=== PATIENT | female | born 1975 | race Caucasian/White ===

== ENCOUNTER 2017-07-18 13:51 | Emergency (ER) | payer OTHER ==
--- OUTSIDE RECORDS SUMMARY | 2017-07-18 14:36 | XMS REPORT ---
:1975 External Reference #:[id number] Author Organization [facility] Address [address] [place] [address] Phone [phone] Care Team Providers Name Role Phone Alexis Huntley M.D. Primary Care Physician Unavailable Payers Type Date Identification Numbers Payment Provider Subscriber Commercial Policy Number: [id number] [employer] [place] Carolynn Edge PayID: [id number] [address] [place] [id number] Problems Date Description Provider Status Onset: Hypothyroidism Active Onset: Anxiety Active Onset: Insomnia Active Onset: Borderline personality disorder Active Onset: 07/15/2016 Other secondary cataract, right eye Justin Richmond M.D. Active Onset: 07/07/2016 Bilateral narrow angle of anterior Justin Richmond M.D. Active chamber of eyes Onset: 01/07/2016 Presence of intraocular lens Justin Richmond M.D. Active Onset: 01/07/2016 Other secondary cataract, bilateral Justin Richmond M.D. Active Onset: 01/07/2016 Tear film insufficiency Justin Richmond M.D. Active Onset: 10/27/2014 Primary angle-closure glaucoma Justin Richmond M.D. Active Onset: 10/27/2014 Pseudophakia Justin Richmond M.D. Active Family History Date Family Member(s) Problem(s) Comments General Cataract GRANDMOTHER Father No Current Problems Mother No Current Problems Social History Type Date Description Comments Marital Status Legal Status: Occupation [employer] Work Status Disabled ETOH Use Denies alcohol use Smoking Light tobacco smoker (10 or fewer cigarettes/day) 4-5 DAILY Daily Caffeine Consumes on average 1 cup of regular coffee per sometimes less day Allergies, Adverse Reactions, Alerts Date Description Reaction Status Severity Comments 07/03/2014 Sulfa Antibiotics active 07/03/2014 Onion active Medications Medication Date Status Form Strength Qnty SIG Indications Ordering Provider Systane Ultra 07/02/ Active Solution 0.4-0.3% 1 drop Justin J. 2014 both eyes Arleo, four M.D. times a day Levothyroxine / Active Tablets 137mcg Unknown Sodium 0000 Clonidine HCL / Active Tablets 0.2mg Unknown 0000 Fexofenadine / Active Tablets 180mg Unknown HCL 0000 Primidone / Active Tablets 50mg Unknown 0000 Propranolol HCL / Active Tablets 10mg [place], 0000 Heidi M.D. Fluconazole / Active Tablets 150mg Unknown 0000 Nortriptyline / Active Capsules 10mg Unknown HCL 0000 Vitamin D3 / Active Tablets Unknown Complete 0000 Sertraline HCL / Active Tablets 50mg Unknown 0000 Saphris / Active Tablets Sub 5mg Unknown 0000 Prednisolone 07/11/ Hx Suspension 1% 15ml 1 drops Justin J. Acetate 2014 - left eye Arleo, 08/15/ three M.D. 2014 times a day. taper as directed 1 drop 2 x a day right eye taper as directed Ciprofloxacin 07/11/ Hx Solution 0.3% 5ml instill Justin J. HCL 2014 - one drop Arleo, 08/15/ in the M.D. 2014 left eye three times a day, start the day before surgery Ketorolac 07/11/ Hx Solution 0.5% 10ml instill Justin J. Tromethamine 2014 - one drop Arleo, 08/15/ both eyes M.D. 2014 three times a day, start the day before surgery Klonopin 00/00/ Hx Tablets 1mg Unknown 2015 Lamictal /00/ Hx Tablets 200mg Unknown 2015 Prazosin HCL /00/ Hx Capsules 2mg Unknown 2016 Ultracet 00/00/ Hx Tablets 37.5-325mg Unknown - 2014 Seroquel /00/ Hx Tablets 100mg Unknown 2017 Sertraline HCL 00/00/ Hx Tablets 50mg Unknown - 2016 Nicotine 00/00/ Hx Patches 24HR 14mg/24HR Apply One Unknown 0000 - Patch To 01/05/ The Skin 2015 Every Day Changing Daily For Up To 28 Days Nicotine 00/00/ Hx Patches 24HR 21mg/24HR Apply One Unknown 0000 - Patch To 01/05/ The Skin 2015 Every Day Changing Daily Then Go To 14 MG Nicotine 00/00/ Hx Patches 24HR 7mg/24HR Apply One Unknown 0000 - Patch To 07/06/ The Skin 2016 Every Day Changing Daily Start After 14 M Amoxicillin/Cla 00/00/ Hx Tablets 875-125mg Unknown vulanate 0000 - Potassium 2015 Oxycodone-Aceta 00/00/ Hx Tablets 5-325mg Unknown minophen - 2015 Guaifenesin-Cod /00/ Hx Solution 100-10mg/5 Unknown eine 0000 - ML 2015 Doxycycline /00/ Hx Capsules 100mg Unknown Hyclate 2015 Fluticasone 00/00/ Hx Suspension 50mcg/Act Unknown Propionate 2015 Cetirizine HCL 00/00/ Hx Tablets 10mg Unknown 2015 Sertraline HCL 00/00/ Hx Tablets 25mg Unknown 2015 Tizanidine HCL 00/00/ Hx Tablets 2mg Storm, - Shawnti 2015 Quetiapine 00/00/ Hx Tablets 50mg Unknown Fumarate 2015 Amitriptyline 00/00/ Hx Tablets 25mg Unknown HCL 2015 Ziprasidone HCL 00/00/ Hx Capsules 20mg Unknown 2015 Ziprasidone HCL 00/00/ Hx Capsules 40mg Unknown 2015 Lamotrigine 00/00/ Hx Tablets 200mg Unknown 2015 Metronidazole 00/00/ Hx Tablets 500mg Unknown 2015 Multiple 00/00/ Hx Tablets Unknown Vitamins - 2017 Vital Signs Date Vital Result Comment 07/22/2016 BP Systolic 114 mmHg BP Diastolic 82 mmHg Heart Rate 70 /min Respiratory Rate 16 /min 07/15/2016 BP Systolic 134 mmHg BP Diastolic 84 mmHg Heart Rate 76 /min Respiratory Rate 16 /min Results Description No Information Procedures Date CPT Code Description Status 07/22/2016 02533 Remove Secondary Cataract, Laser (Yag) Completed 07/15/2016 45732 Remove Secondary Cataract, Laser (Yag) Completed 07/07/2016 25982 Est Patient Comprehensive Exam Completed 01/07/2016 50737 Est Patient Comprehensive Exam Completed 10/27/2014 54981 Est Patient Intermediate Exam Completed 07/26/2014 67864 Extracapsular Cataract Extraction W/Intraocular Lens Completed 07/19/2014 99172 Extracapsular Cataract Extraction W/Intraocular Lens Completed 07/11/2014 52580 Gonioscopy Completed 07/11/2014 60147 Ophthalmic Biometry Completed 07/11/2014 49704 Ophthalmic Biometry Completed 07/03/2014 35402 Gonioscopy Completed 06/12/2014 28566 Iridoplasty By Photocoagulation Completed 03/31/2014 09180 Gonioscopy Completed 03/31/2014 58622 Est Patient Intermediate Exam Completed 03/10/2014 81556 Patient No Show For Appt Completed 09/19/2013 90188 Est Patient Comprehensive Exam Completed 09/06/2013 85241 Iridotomy/Iredectomy By Laser Surgery Completed 08/30/2013 62861 Iridotomy/Iredectomy By Laser Surgery Completed 08/12/2013 65328 New Patient Comprehensive Exam Completed Encounters Type Date Location Provider CPT E/M Dx Office Visit 07/11/2014 12:15p Justin Richmond MD, Justin Richmond, [address] [phone] raine Sanchez 366.16 Office Visit 07/03/2014 12:30p Justin Richmond MD, Justin Richmond, [address] [phone] raine Sanchez 366.16 Plan of Care 07/14/2017 - Justin Richmond M.D.H26.491 Other secondary cataract, right eyeComments:Smoking can increase the risk of developing or worsening any eye related disease, as well as affect your overall health. If you are a smoker, we strongly recommend that you quit.If you are not a smoker, we strongly recommend that you do not start. There is clouding in the sac that holds your artificial lens in your right eye. We will schedule you an appointment for the YAG Capsulotomy laser with Dr. Richmond. Please read the pamphlet that has been printed out for you. We recommend you bring someoneto drive you home.Follow up: Schedule YAG ODZ96.1 Presence of intraocular lensComments:The artificial lens implants in both eyes appear to be stable at this time.
--- OUTSIDE RECORDS SUMMARY | 2017-07-18 14:38 | XMS REPORT ---
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 Cigarette Use regularly smokes cigarettes 4-6 ciggs daily ETOH Use Rarely consumes alcohol Recreational Drug Use Denies Drug Use Smoking Patient is a current smoker, smokes every day Daily Caffeine Does Not Consume Caffeine Currently Active Patient is currently not sexually active General Hx Text Allergies, Adverse Reactions, Alerts Date Description Reaction Status Severity Comments 03/28/2004 Sulfa active 07/12/2013 Onion active Severe 02/20/2015 Topiramate active violent Medications Medication Date Status Form Strength Qnty SIG Indications Ordering Provider Levothyroxine 01/26 Active Tablets 150mcg 90tab take one Shawnti R. Sodium s tablet by adán HoughP-Zahra every day for thyroid Nortriptyline 05/27 Active Capsules 30cap Suzette HCL /2016 s CARYL Perry Nicoderm CQ 01/26 Active Patches 21mg/24HR 14uni apply 1 F17.210 Katalina R. 24HR ts patch to Storm, skin, [employer] change daily for 14 days.then go to 14mg dose Nicoderm CQ 01/26 Active Patches 14mg/24HR 14uni apply one F17.210 Desmondwnti R. 24HR ts patch to Storm, skin, [employer] replace daily for up to 28 days then go to 7mg Nicoderm CQ 01/26 Active Patches 7mg/24HR 14uni apply one F17.210 Desmondwnti R. 24HR ts patch to Storm, skin, [employer] change daily for three weeks, start after 14mg dose is complete Aerochamber Plus 07/10 Active Misc 1unit use with Katalina Cortés Jean- s inhalers Storm, as needed [employer] Vitamin D3 07/10 Active Capsules 2000Unit 1 by mouth Nicolei R. every day Storm, [employer] Proair HFA 10/25 Active Aerosol 108(90Bas 8.500 2 puffs J06.9 Desmondwnti R. /2013 e) gm every 4-6 Storm, mcg/Act hours as [employer] needed wheezing or shortness of breath Fluticasone 10/24 Active Suspension 50mcg/Act 1mont 2 sprays J06.9 Shawnti R. Propionate /2013 h each nare Storm, daily for [employer] rhinitis Clonazepam Active Tablets 1mg 60tab 1 by mouth Shawnti R. / s three Storm, times [employer] daily if neded for anxiety Clonidine HCL Active Tablets 0.2mg Bezirgania /0000 Alexis durbin M.D. Fexofenadine HCL Active Tablets 30mg One tab by Unknown /0000 mouth once a day. Zoloft 00 Active Tablets 100mg 1 by mouth Unknown /0000 every day in morning Primidone Active Tablets 50mg 1 tablet Unknown /0000 every day Prednisone 01/16 Hx Tablets 50mg 3tabs 1 tab by R21 Manpreet /2016 mouth [place], - daily for MD 06/22 3 days /2017 Nicotrol 01/02 Hx Inhaler 10mg 168un puff 20 Desmondwnti R. its minutes Storm, - every 2-3 [employer] 06/22 hours daily for 12 weeks; then gradually wean down over 12 weeks Ondansetron 12/26 Hx Tablets 4mg 12tab dissolve 1 R11.2 Shawnti R. /2016 Dispers s tablet in Storm, - mouth [employer] 06/22 times a day as needed for nausea Diclofenac 09/11 Hx Gel 1% 100gm apply 4gms M72.2 Shawnti R. Sodium of gel to Storm, - the right [employer] 09/11 foot times daily if needed for pain Meloxicam 09/11 Hx Tablets 15mg 30tab 1 by mouth M72.2 Shawnti R. /2016 s daily for Storm, - pain, take [employer] 10/20 with food /2016 Cyclobenzaprine 05/27 Hx Tablets 5mg 45tab 1-2 by M54.5 Suzette HCL s mouth [place], - three [employer] 06/22 times a day for muscle spasm, may cause drowsiness Ibuprofen 05/27 Hx Tablets 600mg 120ta take one M54.5 Suzette /2016 bs tablet by [place], - mouth 4 [employer] 09/11 times daily with food as needed for pain Doxycycline 11/22 Hx Tablets 100mg 20tab 1 tab by J20.Nancy Shine Hyclate s mouth [place] - twice a III, [employer] 05/27 day for days for infection Guaifenesin ac 11/22 Hx Syrup 100-10mg/ 200un take 1-2 J20.9 Rl 5ML its teaspoon [place]idan - by mouth III, [employer] 05/27 at bedtime for cough Augmentin 06/14 Hx Tablets 875-125mg 20tab 1 tab by J01.90 Desmondwnti R. /2015 s mouth Gianluca, - twice a [employer] 06/23 day for days for sinus infection Tizanidine HCL 05/25 Hx Tablets 2mg 30tab take 1 S39.012A Shawnti R. /2015 s tablet by Gianluca, - mouth [employer] 05/27 times daily as needed for muscle spasm Amoxicillin/Clav 02/20 Hx Tablets 875-125mg 20tab 1 by mouth J01.40 Shawnti R. ulanate /2014 s twice a Storm, Potassium - day for 10 [employer] 03/02 days for infection Amoxicillin 12/04 Hx Tablets 875mg 20tab 1 by mouth 461.8 Shawnti R. /2014 s twice a Storm, - day for [employer] 12/04 sinus /2014 infection Guaifenesin-Code 12/04 Hx Syrup 100-10mg/ 180ml 1-2 461.8 Shawnti R. ine 5ML teaspoon Storm, - by mouth [employer] 01/26 every hours as needed cough Amoxicillin 12/04 Hx Suspension 400mg/5ML 200un 2 tsp po 461.8 Shawnti R. /2014 Rec its bid for Storm, - sinus [employer] 12/14 infection /2014 Niacin 11/28 Hx Tablets 100mg Shawnti R. /2014 Storm, - [employer] 01/26 Armenta Seal 11/28 Hx Capsules 500mg Shawnti R. /2014 Storm, - [employer] 01/26 Tamiflu 11/28 Hx Capsules 75mg 10cap one by 487.8 Shawnti R. /2014 s mouth Storm, - twice [employer] 12/08 daily for 5 days Nicoderm CQ 07/11 Hx Patches 14mg/24HR 14uni apply one Shawnti R. 24HR ts patch to Storm, - skin, [employer] 01/26 replace daily for 14 days Levothyroxine 05/18 Hx Tablets 137mcg 90tab 1 by mouth Shawnti R. Sodium /2014 s every day Storm, - [employer] 01/26 Ciprofloxacin 04/10 Hx Tablets 500mg 10tab 1 by mouth 599.0 Dahlia HCL /2013 s twice a M. Molly, - day for 5 M.D. /2013 Prednisone 10/25 Hx Tablets 50mg 5tabs one pill 465.0 Shawnti R. /2013 by mouth Storm, - daily for [employer] 10/30 5 days for breathing Benzonatate 10/25 Hx Capsules 100mg 30cap 1 by mouth 465.9 Shawnti R. /2013 s three Storm, - times a [employer] 11/04 day as needed cough Amoxicillin 09/05 Hx Tablets 875mg 20tab 1 by mouth 461.0 Shawnti R. s twice a Storm, - day for [employer] 09/15 sinus infection Triamcinolone 08/25 Hx Cream 0.5% 30gm apply to 691.8 Alexis Acetonide affected Huntley, - area bid M.D. 05/27 Nicoderm CQ 08/09 Hx Patches 21mg/24HR 14uni apply 1 Shawnti R. 24HR ts patch to Storm, - skin, [employer] 07/11 change daily for 14 days.then go to 14mg dose Nicoderm CQ 08/09 Hx Patches 14mg/24HR 14uni apply one Shawnti R. 24HR ts patch to Storm, - skin, [employer] 07/10 daily for 14 days, start after 21mg patches completed. Nicoderm CQ 08/09 Hx Patches 7mg/24HR 14uni apply one Shawnti R. 24HR ts patch to Storm, - skin, [employer] 01/26 daily for two weeks, start after 14mg dose is complete Epinephrine 07/12 Hx Device 0.3mg/0.3 1pen inject Shawnti R. ML into thigh Storm, - if needed [employer] 05/25 for throat /2016 swelling Ondansetron Odt 07/12 Hx Tablets 4mg 12tab 1 po tid 558.9 Shawnti R. Dispers s prn nausea Storm, - [employer] 07/10 Micronor 05/30 Hx 0.35mg daily Shawnti R. /2013 Storm, - [employer] 07/10 Guaifenesin/Code 05/30 Hx Syrup 100-10mg/ 150ml 1-2 tsp po 465.9 Shawnti R. ine 5ML q6hrs prn Storm, - cough [employer] 07/12 Proair HFA 05/30 Hx Aerosol 108(90Bas 8.500 2 puffs q 465.9 Shawnti R. /2013 e) gm 4-6 hours Storm, - mcg/Act prn [employer] 10/25 wheezing or shortness of breath Levothyroxine 02/04 Hx Tablets 125mcg 30tab Take One Shawnti R. Sodium s Tablet By Storm, - Mouth [employer] 05/18 Every Day For Thyroid; Repeat TSH In 6 Weeks Cipro 12/24 Hx Tablets 500mg 20tab one po bid Shawnti R. /2012 s for 10 Storm, - days [employer] 01/31 Clarithromycin 08/30 Hx Tablets 500mg 20tab 1 po bid 461.0 Shawnti R. s for sinus Storm, - infection [employer] 09/09 Slimquick For 08/19 Hx Shawnti R. Women Storm, - [employer] 01/31 Levothyroxine 07/26 Hx Tablets 112mcg 90tab 1 po qd Shawnti R. Sodium s Storm, - [employer] 02/04 Ciprofloxacin 07/19 Hx Tablets 250mg 10tab take 1 599.0 Suzette HCL s tablet bid [place], - x 5 days [employer] 01/31 Nicotine Step 1 07/19 Hx Patches 21mg/24HR 1 patch Suzette 24HR every 24 [place], - hours, [employer] 01/31 remove old patch Levothyroxine 06/10 Hx Tablets 125mcg 90tab take one Shawnti R. Sodium s tablet by [facility], - mouth [employer] 01/31 every for thyroid, repeat TSH in 6 weeks Synthroid 05/16 Hx Tablets 112mcg 60tab 1 po qd, Shawnti R. s repeat Storm, - labs in 6 [employer] Ergocalciferol 09/19 Hx Capsules [id number] 8caps 1 po twice Shawnti R. /2010 weekly for Storm, - one month [employer] 01/31 Cock Up Wrist 08/09 Hx Bilater 1Pair wear daily 719.43 Shawnti R. Splint Medium for wrist Storm, - pain [employer] 01/31 Percocet 08/09 Hx Tablets 5-325mg 20twe 1-2 tabs 719.47 Shawnti R. /2010 nty po q6hr Storm, - prn pain [employer] 01/31 No Work 11/30 Hx excuse due 599.0 Shawnti R. /2009 to Storm, - illness, [employer] 08/09Thursday Pyridium 11/30 Hx Tablets 100mg 12tab 1 or 2 po 599.0 Shawnti R. /2009 s tid prn Storm, - urinary [employer] 08/09 pain Nicoderm CQ 10/01 Hx Patches 21mg/24HR 14uni apply 1 Shawnti R. 24HR ts patch to Storm, - skin, [employer] 08/09 change daily for 14 days.then go to 14mg dose Nicoderm CQ 10/01 Hx Patches 14mg/24HR 14uni apply one Shawnti R. 24HR ts patch to Storm, - skin, [employer] 08/09 daily for 14 days, start after 21mg patches completed. Nicoderm CQ 10/01 Hx Patches 7mg/24HR 14uni apply one Shawnti R. 24HR ts patch to Storm, - skin, [employer] 08/09 daily for two weeks, start after 14mg dose is complete Synthroid 07/09 Hx Tablets 100mcg 30tab take one 244.9 Shawnti R. s tablet by Storm, - mouth one [employer] 05/16 time daily Cipro 07/06 Hx Tablets 500mg 20tab one po bid 599.0 Shawnti R. /2009 s for 10 Storm, - days [employer] 12/10 Cipro 06/08 Hx Tablets 250mg 14tab 1 pill po 599.0 Shawnti R. /2009 s bid for 7 Storm, - days for [employer] 06/15 urine infection Ciprofloxacin 04/27 Hx 250mg 10uni 1 po bid 599.0 Shawnti R. HCL ts for urine Storm, - infection, [employer] 04/27 take for 10 days Macrobid 04/27 Hx Capsules 100mg 14cap 1 po bid Shawnti R. s for 7 days Gianluca, - for urine [employer] 01/23 Trazodone HCL 01/24 Hx Tablets 50mg 30tab 1 qhs prn Bezirgan s Alexis durbin M.D. 01/31 Chantix Starter 01/24 Hx Tablets 0.5mg 1tabs use as directed Alan Huntley M.D. 04/24 Chantix 01/24 Hx Tablets 1mg 60tab 1 po bid Alan Lopez M.D. 10/01 Lamictal 09/14 Hx Tablets 200mg 1 po qd Bezirgan Alexis durbin M.D. 08/09 Lexapro 09/14 Hx Tablets 20mg 30tab 1 po qd Bezirgan s Alexis durbin M.D. 08/09 Vistaril 09/14 Hx Capsules 25mg 1 po qhs Alexis durbin M.D. 01/31 Return To Work 06/15 Hx may return 465.9 Shawnti R. to work [facility], - without [employer] 09/14 n No Work 06/13 Hx 465.9 Shawnti R. Gianluca, - [employer] 06/15 /Folic 04/24 Hx Tablets 30tab 1 po daily Shawnti RKindra s [facility], - [employer] 09/14 Refer For Eye 11/[address] Kiana Valladares Exam Mac Raya, - For F.N.P.C. 02/17 Consult And Evaluation For Glasses Phenergan 05/06 Hx Tablets 25mg 20tab One PO tid s prn [place], - Nausea. Daniel 06/05 No Work 03/08 Hx no work 787.01 Shawnti R. /2006mar 08 Gianluca, - 2006 due [employer] 02/17 to illness Cipro 03/08 Hx Tablets 250mg 10tab 1 Pill PO 599.0 Desmondwnti R. /2006 s bid For 5 Storm, - Days For [employer] 02/17 Infection Chantix 02/23 Hx Misc Starter 1unit Use as 305.1 Pack s Directed Alan Huntley M.D. 05/24 Chantix 02/23 Hx Tablets 1mg 60tab 1 PO bid 305.1 s Alan Huntley M.D. 09/14 Metronidazole 01/13 Hx Tablets 500mg 14tab 1 bid x 7 s Alan Crockett M.D. 04/13 Zithromax Z-Faisal 12/29 Hx Tablets 250mg 6tabs two po qd 465.9 today and K.W. - then one Michael, 05/07 po qd for M.D. 4 days Synthroid 11/10 Hx Tablets 75mcg 30tab 1 po daily 244.9 Shawnti R. s for Storm, - thyroid [employer] 07/09 replace t Nicoderm CQ 07/10 Hx Patches 14mg/Day QS Apply To Skin qd X Alan Huntley 6 Weeks, Daniel 10/08 Then 7MG /2005 qd X 2 Weeks. Depakote 07/10 Hx Tablets 250mg 90tab 3 qhs Alan Lopez M.D. 05/06 Synthroid 07/10 Hx Tablets 50mcg 30tab 1 po qd 244.9 Alan Lopez M.D. 11/10 Synthroid 10/31 Hx Tablets 75mcg 1 po qd 244.9 Kiana A. /2004 Alan Raya F.N.P.C. 10/31 Synthroid 10/31 Hx Tablets 100mcg 30tab one po qd Kiana A. /2004 Alan Irizarry F.N.P.C. 07/17 Excuse From Work 10/18 Hx PT was in our clinic Alan Huntley. M.DKindra 01/16 Needs be out of work through October 20. Synthroid 03/28 Hx Tablets 75mcg 30tab 1 po qd 244.9 s (Alan Alva 2 MLa 07/17 wks 50McG) Synthroid 08/20 Hx Tablets 50mcg 30tab 1 po qd 244.9 Kiana A. s Alan Raya F.N.P.CKindra 10/31 Nelfinavir 16 Hx Tablets 250mg 250ta Five Tabs Kiana A. /2002 bs PO bid Dorota, - F.N.P.C. 08/06 Combivir 10/16 Hx 50uni One Tab PO Kiana A. /2002 ts bid Dorota, - F.N.P.C. 08/06 Floxin 00 Hx Tablets 400mg 20tab One bid X Unknown / s 10 Days - 08/06 Synthroid 00/ Hx Tablets 25mcg 0tabs 1 PO qd Unknown / - 08/20 Depew 00/00 Hx 300mg three tabs Unknown /0000 at hs. - 12/29 Trazodone 00 Hx Tablets 25mg 15tab 1/4 tab at Alexis /0000 s hs Alan Huntley M.D. 05/06 Zolpidem 00/00 Hx Tablets 5mg 1 tab po Unknown Tartrate / hs prn - insomnia 07/10 Pilocarpine HCL 0000 Hx Solution 1% qid Arleo, /0000 Alan Jovel MD 01/26 Lamotrigine 00/00 Hx Tablets 200mg Bezirgania /0000 Alexis durbin M.D. 05/25 Prazosin HCL 0000 Hx Capsules 2mg Bezirgania /0000 Alexis durbin M.D. 11/28 Amitriptyline 0000 Hx Tablets 25mg take on po Unknown HCL /0000 qhs - 05/27 Medications Administered in Office Medication Date Status Form Strength Qnty SIG Indications Ordering Provider TB,Intradermal Administered Injection Lab and (PPD, Mantoux) 014 Office Services Immunizations CPT Code Status Date Vaccine Lot # [id number] Refused 03/31/2016 Influenza Virus Vaccine, Quadrivalent, 3 Yr > Quad, Preserv Free Vital Signs Date Vital Result Comment 06/22/2017 Weight 207.00 lb Weight in kg's 93.895 BP Systolic 112 mmHg BP Diastolic 74 mmHg Heart Rate 69 /min Body Temperature 97.4 F Respiratory Rate 16 /min Height 64 inches 5'4" BMI (Body Mass Index) 35.5 kg/m2 O2 % BldC Oximetry 97 % 01/16/2017 Weight 210.00 lb Weight in kg's 95.256 BP Systolic 110 mmHg BP Diastolic 68 mmHg Heart Rate 68 /min Body Temperature 98.9 F Respiratory Rate 16 /min 12/26/2016 Weight 204.00 lb Weight in kg's 92.534 BP Systolic 118 mmHg BP Diastolic 80 mmHg Heart Rate 88 /min Body Temperature 97.4 F Respiratory Rate 16 /min 11/14/2016 Weight 214.00 lb Weight in kg's 97.070 BP Systolic 90 mmHg BP Diastolic 70 mmHg Heart Rate 73 /min Body Temperature 96.7 F Respiratory Rate 18 /min O2 % BldC Oximetry 97 % 10/20/2016 Weight 214.00 lb Weight in kg's 97.070 BP Systolic 108 mmHg BP Diastolic 78 mmHg Heart Rate 70 /min Body Temperature 98.3 F Respiratory Rate 18 /min O2 % BldC Oximetry 98 % 09/11/2016 BP Systolic 110 mmHg BP Diastolic 80 mmHg Heart Rate 64 /min Body Temperature 97.6 F Respiratory Rate 12 /min 05/27/2016 Weight 207.00 lb Weight in kg's 93.895 BP Systolic 116 mmHg BP Diastolic 82 mmHg Heart Rate 89 /min Body Temperature 99.1 F Respiratory Rate 20 /min O2 % BldC Oximetry 98 % 03/31/2016 Weight 206.00 lb Weight in kg's 93.442 BP Systolic 90 mmHg BP Diastolic 60 mmHg Heart Rate 64 /min Body Temperature 97.1 F Respiratory Rate 12 /min 11/23/2015 Weight 193.00 lb Weight in kg's 87.545 BP Systolic 118 mmHg BP Diastolic 92 mmHg Heart Rate 84 /min Body Temperature 98.7 F O2 % BldC Oximetry 97 % 11/08/2015 Weight 190.00 lb Weight in kg's 86.184 BP Systolic 110 mmHg BP Diastolic 80 mmHg Heart Rate 71 /min Body Temperature 98.4 F Respiratory Rate 12 /min 06/14/2015 Weight 173.00 lb Weight in kg's 78.473 BP Systolic 100 mmHg BP Diastolic 70 mmHg Heart Rate 74 /min Body Temperature 98.0 F O2 % BldC Oximetry 98 % 05/25/2015 Weight 176.00 lb Weight in kg's 79.834 BP Systolic 100 mmHg BP Diastolic 70 mmHg Heart Rate 62 /min 02/20/2015 Weight 168.00 lb Weight in kg's 76.205 BP Systolic 110 mmHg BP Diastolic 72 mmHg Heart Rate 84 /min 01/26/2015 Weight 161.00 lb Weight in kg's 73.030 BP Systolic 90 mmHg BP Diastolic 62 mmHg Heart Rate 68 /min 12/04/2014 Weight 160.00 lb Weight in kg's 72.576 BP Systolic 116 mmHg BP Diastolic 78 mmHg Heart Rate 72 /min Body Temperature 98.7 F 11/28/2014 Weight 165.00 lb Weight in kg's 74.844 BP Systolic 110 mmHg BP Diastolic 60 mmHg Heart Rate 80 /min Body Temperature 99.2 F O2 % BldC Oximetry 95 % 07/10/2014 Weight 173.00 lb Weight in kg's 78.473 BP Systolic 114 mmHg BP Diastolic 80 mmHg Heart Rate 72 /min Height 62 inches 5'2" BMI (Body Mass Index) 31.6 kg/m2 05/23/2014 Weight 172.00 lb Weight in kg's 78.019 BP Systolic 110 mmHg BP Diastolic 70 mmHg Heart Rate 72 /min 04/10/2014 Weight 165.00 lb Weight in kg's 74.844 BP Systolic 110 mmHg BP Diastolic 76 mmHg Heart Rate 76 /min Body Temperature 98.2 F 10/25/2013 Weight 155.00 lb Weight in kg's 70.308 BP Systolic 90 mmHg BP Diastolic 60 mmHg Heart Rate 76 /min Body Temperature 98.5 F O2 % BldC Oximetry 98 % at room air 10/24/2013 Weight 157.00 lb Weight in kg's 71.215 BP Systolic 100 mmHg BP Diastolic 70 mmHg Heart Rate 74 /min Body Temperature 97.8 F 09/20/2013 Weight 157.00 lb Weight in kg's 71.215 BP Systolic 104 mmHg BP Diastolic 64 mmHg Heart Rate 72 /min 09/05/2013 Weight 156.00 lb Weight in kg's 70.762 BP Systolic 96 mmHg BP Diastolic 66 mmHg Heart Rate 80 /min Body Temperature 98.4 F 08/25/2013 Weight 156.00 lb Weight in kg's 70.762 BP Systolic 88 mmHg BP Diastolic 58 mmHg Heart Rate 88 /min Body Temperature 98.6 F 07/12/2013 Weight 160.00 lb Weight in kg's 72.576 BP Systolic 114 mmHg BP Diastolic 80 mmHg Heart Rate 88 /min Body Temperature 98.3 F Height 62.5 inches 5'2.50" BMI (Body Mass Index) 28.8 kg/m2 05/30/2013 Weight 157.00 lb Weight in kg's 71.215 BP Systolic 100 mmHg BP Diastolic 70 mmHg Heart Rate 84 /min Body Temperature 98.8 F O2 % BldC Oximetry 96 % at room air 01/31/2013 Weight 150.00 lb Weight in kg's 68.040 BP Systolic 110 mmHg BP Diastolic 68 mmHg Heart Rate 80 /min 12/24/2012 Weight 145.00 lb Weight in kg's 65.772 BP Systolic 102 mmHg BP Diastolic 60 mmHg Heart Rate 68 /min Body Temperature 98.8 F 08/30/2012 Weight 150.00 lb Weight in kg's 68.040 BP Systolic 100 mmHg BP Diastolic 64 mmHg Heart Rate 84 /min Body Temperature 98.1 F 07/19/2012 Weight 159.00 lb Weight in kg's 72.122 BP Systolic 110 mmHg BP Diastolic 60 mmHg Heart Rate 72 /min Body Temperature 97.8 F 08/09/2010 Weight 190.00 lb Weight in kg's 86.184 BP Systolic 110 mmHg BP Diastolic 80 mmHg Heart Rate 80 /min Body Temperature 98.4 F 11/30/2009 Weight 172.00 lb Weight in kg's 78.019 BP Systolic 102 mmHg BP Diastolic 70 mmHg Heart Rate 92 /min Body Temperature 98.8 F 07/06/2009 Weight 172.00 lb Weight in kg's 78.019 BP Systolic 130 mmHg BP Diastolic 78 mmHg Heart Rate 88 /min Body Temperature 99.3 F 06/08/2009 Weight 174.00 lb Weight in kg's 78.926 BP Systolic 108 mmHg BP Diastolic 74 mmHg Heart Rate 72 /min Body Temperature 97.5 F 04/27/2009 Weight 175.00 lb Weight in kg's 79.380 BP Systolic 114 mmHg BP Diastolic 78 mmHg Heart Rate 96 /min 01/24/2009 Weight 178.00 lb Weight in kg's 80.741 BP Systolic 122 mmHg BP Diastolic 74 mmHg Heart Rate 80 /min 09/14/2008 Weight 160.00 lb Weight in kg's 72.576 BP Systolic 105 mmHg BP Diastolic 60 mmHg Heart Rate 76 /min 06/13/2008 Weight 162.00 lb Weight in kg's 73.483 BP Systolic 118 mmHg BP Diastolic 68 mmHg Heart Rate 84 /min Body Temperature 98.1 F 05/06/2007 Weight 184.00 lb Weight in kg's 83.462 BP Systolic 110 mmHg BP Diastolic 62 mmHg Heart Rate 92 /min Body Temperature 97.0 F Height 62 inches 5'2" BMI (Body Mass Index) 33.7 kg/m2 Last Menstrual Period 0 O2 % BldC Oximetry 96 % 04/14/2007 Weight 184.00 lb Weight in kg's 83.462 BP Systolic 110 mmHg BP Diastolic 62 mmHg Heart Rate 77 /min Body Temperature 97.0 F Height 62 inches 5'2" BMI (Body Mass Index) 33.7 kg/m2 O2 % BldC Oximetry 97 % 03/08/2007 Weight 178.00 lb Weight in kg's 80.741 BP Systolic 106 mmHg BP Diastolic 64 mmHg Heart Rate 68 /min Body Temperature 99.0 F Height 62 inches 5'2" BMI (Body Mass Index) 32.6 kg/m2 02/23/2007 Weight 178.00 lb Weight in kg's 80.741 BP Systolic 110 mmHg BP Diastolic 80 mmHg Heart Rate 82 /min Height 62 inches 5'2" BMI (Body Mass Index) 32.6 kg/m2 01/13/2007 Weight 172.00 lb Weight in kg's 78.019 BP Systolic 120 mmHg BP Diastolic 68 mmHg Heart Rate 68 /min Body Temperature 97.9 F Height 62 inches 5'2" BMI (Body Mass Index) 31.5 kg/m2 12/29/2005 Weight 177.00 lb Weight in kg's 80.287 BP Systolic 120 mmHg BP Diastolic 78 mmHg Heart Rate 68 /min Body Temperature 96.6 F Height 62 inches 5'2" BMI (Body Mass Index) 32.4 kg/m2 07/17/2005 Weight 188.00 lb Weight in kg's 85.277 BP Systolic 130 mmHg BP Diastolic 80 mmHg Height 62 inches 5'2" BMI (Body Mass Index) 34.4 kg/m2 07/10/2005 Weight 189.00 lb Weight in kg's 85.730 BP Systolic 118 mmHg BP Diastolic 78 mmHg Heart Rate 80 /min Height 62 inches 5'2" BMI (Body Mass Index) 34.6 kg/m2 10/18/2004 Weight 186.00 lb Weight in kg's 84.370 BP Systolic 120 mmHg BP Diastolic 80 mmHg Height 62 inches 5'2" BMI (Body Mass Index) 34.0 kg/m2 04/09/2004 Weight 173.00 lb Weight in kg's 78.473 BP Systolic 110 mmHg BP Diastolic 70 mmHg Body Temperature 97.9 F Height 62 inches 5'2" BMI (Body Mass Index) 31.6 kg/m2 03/28/2004 Weight 176.00 lb Weight in kg's 79.834 BP Systolic 118 mmHg BP Diastolic 80 mmHg Heart Rate 80 /min Respiratory Rate 18 /min Height 62 inches 5'2" BMI (Body Mass Index) 32.2 kg/m2 08/07/2003 Weight 167.00 lb Weight in kg's 75.751 BP Systolic 126 mmHg BP Diastolic 72 mmHg 02/02/2003 Weight 164.00 lb Weight in kg's 74.390 BP Systolic 120 mmHg BP Diastolic 70 mmHg Heart Rate 60 /min Respiratory Rate 18 /min Height 61.50 inches BMI (Body Mass Index) 30.5 kg/m2 Last Menstrual Period [id number] Results Test Date Test Result H/L Range Note Laboratory test finding 01/02/2017 Hemoglobin A1c 6.8 % High Less than 6.0 1, 2 TSH (Thyroid Stimulating Horm) 24.14 mcIU/mL High 0.34-5.60 1, 3 Total T3 0.79 ng/mL Low 0.87-1.78 1, 4 Free T4 0.83 ng/dL 0.61-1.12 1, 5 CBC Auto Diff 10/20/2016 White Blood Count 8.7 10^3/uL 3.5-10.8 6 Red Blood Count 3.84 10^6/uL Low 4.0-5.4 6 Hemoglobin 13.1 g/dL 12.0-16.0 6 Hematocrit 39 % 35-47 6 Mean Corpuscular Volume 101 fL High 80-97 6 Mean Corpuscular Hemoglobin 34 pg High 27-31 6 Mean Corpuscular HGB Conc 34 g/dL 31-36 6 Red Cell Distribution Width 15 % 10.5-15 6 Platelet Count 294 10^3/uL 150-450 6 Mean Platelet Volume 8 um3 7.4-10.4 6 Abs Neutrophils 4.5 10^3/uL 1.5-7.7 6 Abs Lymphocytes 3.5 10^3/uL 1.0-4.8 6 Abs Monocytes 0.3 10^3/uL 0-0.8 6 Abs Eosinophils 0.2 10^3/uL 0-0.6 6 Abs Basophils 0.1 10^3/uL 0-0.2 6 Abs Nucleated RBC 0.01 10^3/uL 6 Granulocyte % 52.2 % 38-83 6 Lymphocyte % 40.4 % 25-47 6 Monocyte % 4.0 % 1-9 6 Eosinophil % 2.6 % 0-6 6 Basophil % 0.8 % 0-2 6 Nucleated Red Blood Cells % 0.1 6 Laboratory test finding 10/20/2016 Ferritin 171.7 ng/mL 11-307 6, 7 Iron & Iron Binding Capacity 10/20/2016 Iron 70 g/dL 50-212 6 Unsaturated Iron Binding 263 g/dL 6 Total Iron Binding Capacity 333 g/dL 250-450 6 % Iron Saturation 21 % 15-55 6 Laboratory test 10/20/2016 TSH (Thyroid 196.45 mcIU/mL High 0.34-5.60 6, 8 finding Stimulating Horm) Comp Metabolic 10/20/2016 Sodium 135 mmol/L 133-145 6 Panel Potassium 4.1 mmol/L 3.5-5.0 6 Chloride 104 mmol/L 101-111 6 Co2 Carbon Dioxide 22 mmol/L 22-32 6 Anion Gap 9 mmol/L 2-11 6 Glucose 120 mg/dL High 70-100 6 Blood Urea Nitrogen 8 mg/dL 6-24 6 Creatinine 1.01 mg/dL High 0.51-0.95 6 BUN/Creatinine Ratio 7.9 Low 8-20 6 Calcium 8.9 mg/dL 8.6-10.3 6 Total Protein 7.2 g/dL 6.4-8.9 6 Albumin 4.1 g/dL 3.2-5.2 6 Globulin 3.1 g/dL 2-4 6 Albumin/Globulin Ratio 1.3 1-3 6 Total Bilirubin 0.40 mg/dL 0.2-1.0 6 Alkaline Phosphatase 61 U/L 34-104 6 Alt 59 U/L High 7-52 6 Ast 43 U/L High 13-39 6 Egfr Non- 61.0 >60 6 Egfr 78.5 >60 6, 9 Laboratory test 10/20/2016 Hemoglobin A1c 6.9 % High Less than 6.0 6, 10 finding Tick-Borne Panel PCR 10/20/2016 Babesia microti PCR Negative Negative 6 Blood Babesia ducani Negative Negative 6 Babesia divergens/Mo-1 Negative Negative 6, 11 Anaplasma phagocytophilum Negative Negative 6 Ehrlichia chaffeensis Negative Negative 6 Ehrlichia ewingii/canis Negative Negative 6 Ehrlichia muris-like Negative Negative 6, 12 B. miyamotoi PCR, B Negative Negative 6, 13 Laboratory test finding 10/20/2016 Magnesium 2.2 mg/dL 1.9-2.7 6, 14 Erythrocyte Sed Rate 34 mm/Hr High 0-14 6, 15 Cyclic Citrullinated Pept IgG <15.6 U 6, 16 Rheumatoid Factor <15 IU/mL <15 6, 17 Urine DIP 05/27/2016 Leukocytes TRACE Neg Urine Nitrites NEG Neg Urobilinogen NORM Norm Total Protein, Urine NEG Neg Urine pH 7 High 5-6 Urine Blood NEG Neg Specific [place] 1.015 1.01-1.02 Urine Ketones NEG Neg Urine Bilirubin NEG Neg Urine Glucose NORM Norm CBC Auto Diff 05/27/2016 White Blood Count 10.0 10^3/uL 3.5-10.8 18 Red Blood Count 3.98 10^6/uL Low 4.0-5.4 18 Hemoglobin 12.6 g/dL 12.0-16.0 18 Hematocrit 38 % 35-47 18 Mean Corpuscular Volume 95 fL 80-97 18 Mean Corpuscular Hemoglobin 32 pg High 27-31 18 Mean Corpuscular HGB Conc 33 g/dL 31-36 18 Red Cell Distribution Width 15 % 10.5-15 18 Platelet Count 342 10^3/uL 150-450 18 Mean Platelet Volume 8 um3 7.4-10.4 18 Abs Neutrophils 5.5 10^3/uL 1.5-7.7 18 Abs Lymphocytes 3.9 10^3/uL 1.0-4.8 18 Abs Monocytes 0.5 10^3/uL 0-0.8 18 Abs Eosinophils 0.1 10^3/uL 0-0.6 18 Abs Basophils 0.1 10^3/uL 0-0.2 18 Abs Nucleated RBC 0.01 10^3/uL 18 Granulocyte % 54.4 % 38-83 18 Lymphocyte % 38.5 % 25-47 18 Monocyte % 5.1 % 1-9 18 Eosinophil % 1.3 % 0-6 18 Basophil % 0.7 % 0-2 18 Nucleated Red Blood Cells % 0.1 18 Laboratory test finding 05/27/2016 Amylase 34 U/L 29-103 18, 19 Lipase 36 U/L 11.0-82.0 18, 20 Comp Metabolic Panel 05/27/2016 Sodium 135 mmol/L 133-145 18 Potassium 4.3 mmol/L 3.5-5.0 18 Chloride 103 mmol/L 101-111 18 Co2 Carbon Dioxide 25 mmol/L 22-32 18 Anion Gap 7 mmol/L 2-11 18 Glucose 129 mg/dL High 70-100 18 Blood Urea Nitrogen 10 mg/dL 6-24 18 Creatinine 0.88 mg/dL 0.51-0.95 18 BUN/Creatinine Ratio 11.4 8-20 18 Calcium 8.7 mg/dL 8.6-10.3 18 Total Protein 6.9 g/dL 6.4-8.9 18 Albumin 4.0 g/dL 3.2-5.2 18 Globulin 2.9 g/dL 2-4 18 Albumin/Globulin Ratio 1.4 1-3 18 Total Bilirubin 0.30 mg/dL 0.2-1.0 18 Alkaline Phosphatase 68 U/L 34-104 18 Alt 28 U/L 7-52 18 Ast 27 U/L 13-39 18 Egfr Non- 71.5 >60 18 Egfr 92.0 >60 18, 21 CBC Auto Diff 11/25/2015 White Blood Count 6.5 10^3/uL 3.5-10.8 Red Blood Count 4.21 10^6/uL 4.0-5.4 Hemoglobin 13.1 g/dL 12.0-16.0 Hematocrit 39 % 35-47 Mean Corpuscular Volume 92 fL 80-97 Mean Corpuscular Hemoglobin 31 pg 27-31 Mean Corpuscular HGB Conc 34 g/dL 31-36 Red Cell Distribution Width 14 % 10.5-15 Platelet Count 304 10^3/uL 150-450 Mean Platelet Volume 7 um3 Low 7.4-10.4 Abs Neutrophils 3.5 10^3/uL 1.5-7.7 Abs Lymphocytes 2.2 10^3/uL 1.0-4.8 Abs Monocytes 0.6 10^3/uL 0-0.8 Abs Eosinophils 0.2 10^3/uL 0-0.6 Abs Basophils 0 10^3/uL 0-0.2 Abs Nucleated RBC 0 10^3/uL Granulocyte % 53.5 % 38-83 Lymphocyte % 34.4 % 25-47 Monocyte % 8.7 % 1-9 Eosinophil % 2.6 % 0-6 Basophil % 0.8 % 0-2 Nucleated Red Blood Cells % 0.1 Comp Metabolic Panel 11/25/2015 Sodium 137 mmol/L 133-145 Potassium 3.8 mmol/L 3.5-5.0 Chloride 106 mmol/L 101-111 Co2 Carbon Dioxide 25 mmol/L 22-32 Anion Gap 6 mmol/L 2-11 Glucose 89 mg/dL 70-100 Blood Urea Nitrogen 11 mg/dL 6-24 Creatinine 0.87 mg/dL 0.51-0.95 BUN/Creatinine Ratio 12.6 8-20 Calcium 8.9 mg/dL 8.6-10.3 Total Protein 7.2 g/dL 6.4-8.9 Albumin 3.8 g/dL 3.2-5.2 Globulin 3.4 g/dL 2-4 Albumin/Globulin Ratio 1.1 1-3 Total Bilirubin 0.30 mg/dL 0.2-1.0 Alkaline Phosphatase 53 U/L 34-104 Alt 48 U/L 7-52 Ast 44 U/L High 13-39 Egfr Non- 72.9 >60 Egfr 93.7 >60 22 Laboratory test finding 11/25/2015 C Reactive Protein 73.05 mg/L High &lt ; 5.00 23 Lactic Acid 1.3 mmol/L 0.5-2.0 24 Laboratory test finding 11/08/2015 Urine Culture SEE RESULT BELOW 25, 26 Comp Metabolic Panel 11/08/2015 Sodium 134 mmol/L 133-145 27 Potassium 4.7 mmol/L 3.5-5.0 27 Chloride 103 mmol/L 101-111 27 Co2 Carbon Dioxide 24 mmol/L 22-32 27 Anion Gap 7 mmol/L 2-11 27 Glucose 98 mg/dL 70-100 27 Blood Urea Nitrogen 11 mg/dL 6-24 27 Creatinine 0.82 mg/dL 0.51-0.95 27 BUN/Creatinine Ratio 13.4 8-20 27 Calcium 8.8 mg/dL 8.6-10.3 27 Total Protein 6.7 g/dL 6.4-8.9 27 Albumin 3.8 g/dL 3.2-5.2 27 Globulin 2.9 g/dL 2-4 27 Albumin/Globulin Ratio 1.3 1-3 27 Total Bilirubin 0.50 mg/dL 0.2-1.0 27 Alkaline Phosphatase 64 U/L 34-104 27 Alt 18 U/L 7-52 27 Ast 15 U/L 13-39 27 Egfr Non- 78.0 >60 27 Egfr 100.3 >60 27, 28 Laboratory test finding 11/08/2015 Lipase 26 U/L 11.0-82.0 27, 29 CBC Auto Diff 11/08/2015 White Blood Count 9.7 10^3/uL 3.5-10.8 27 Red Blood Count 4.42 10^6/uL 4.0-5.4 27 Hemoglobin 13.6 g/dL 12.0-16.0 27 Hematocrit 41 % 35-47 27 Mean Corpuscular Volume 93 fL 80-97 27 Mean Corpuscular Hemoglobin 31 pg 27-31 27 Mean Corpuscular HGB Conc 33 g/dL 31-36 27 Red Cell Distribution Width 14 % 10.5-15 27 Platelet Count 377 10^3/uL 150-450 27 Mean Platelet Volume 8 um3 7.4-10.4 27 Abs Neutrophils 5.5 10^3/uL 1.5-7.7 27 Abs Lymphocytes 3.3 10^3/uL 1.0-4.8 27 Abs Monocytes 0.5 10^3/uL 0-0.8 27 Abs Eosinophils 0.3 10^3/uL 0-0.6 27 Abs Basophils 0.1 10^3/uL 0-0.2 27 Abs Nucleated RBC 0.01 10^3/uL 27 Granulocyte % 56.6 % 38-83 27 Lymphocyte % 34.3 % 25-47 27 Monocyte % 5.4 % 1-9 27 Eosinophil % 3.1 % 0-6 27 Basophil % 0.6 % 0-2 27 Nucleated Red Blood Cells % 0.1 27 Urine DIP 11/08/2015 Leukocytes NEG Neg Urine Nitrites NEG Neg Urobilinogen NORM Norm Total Protein, Urine NEG Neg Urine pH 5 5-6 Urine Blood NEG Neg Specific [place] 1.015 1.01-1.02 Urine Ketones NEG Neg Urine Bilirubin NEG Neg Urine Glucose NORM Norm Comp Metabolic Panel 10/08/2015 Sodium 136 mmol/L 133-145 Potassium 4.2 mmol/L 3.5-5.0 Chloride 105 mmol/L 101-111 Co2 Carbon Dioxide 24 mmol/L 22-32 Anion Gap 7 mmol/L 2-11 Glucose 92 mg/dL 70-100 Blood Urea Nitrogen 10 mg/dL 6-24 Creatinine 0.92 mg/dL 0.51-0.95 BUN/Creatinine Ratio 10.9 8-20 Calcium 9.2 mg/dL 8.6-10.3 Total Protein 7.3 g/dL 6.4-8.9 Albumin 4.3 g/dL 3.2-5.2 Globulin 3.0 g/dL 2-4 Albumin/Globulin Ratio 1.4 1-3 Total Bilirubin 0.40 mg/dL 0.2-1.0 Alkaline Phosphatase 61 U/L 34-104 Alt 25 U/L 7-52 Ast 21 U/L 13-39 Egfr Non- 68.3 >60 Egfr 87.9 >60 30 Laboratory test finding 10/08/2015 Ceruloplasmin 28.3 mg/dL 31 Copper 1.45 g/mL 0.75-1.45 32 Urine Drug SCR ED 07/05/2015 Amphetamine Ur Screen None Detected None Detect & [facility] Barbiturates Urine Screen None Detected None Detect Benzodiazepine Urine Screen None Detected None Detect Urine Cannabinoids Screen None Detected None Detect Urine Cocaine Screen None Detected None Detect Urine Opiates Screen None Detected None Detect Urine Phencyclidine Screen None Detected None Detect 33 Urinalysis Profile 07/05/2015 Urine Color Colorless Urine Appearance Clear Urine Specific [place] 1.003 Low 1.010-1.030 Urine pH 6.0 5-9 Urine Urobilinogen Negative Negative Urine Ketones Negative Negative Urine Protein Negative Negative Urine Leukocytes Negative Negative Urine Blood Negative Negative Urine Nitrite Negative Negative Urine Bilirubin Negative Negative Urine Glucose Negative Negative Urine White Blood Cell Absent Absent Urine Red Blood Cell Absent Absent Urine Bacteria Absent Absent Urine Squamous Epithelial Cell Present Absent CBC Auto Diff 07/05/2015 White Blood Count 10.7 10^3/uL 3.5-10.8 Red Blood Count 4.22 10^6/uL 4.0-5.4 Hemoglobin 13.5 g/dL 12.0-16.0 Hematocrit 41 % 35-47 Mean Corpuscular Volume 97 fL 80-97 Mean Corpuscular Hemoglobin 32 pg High 27-31 Mean Corpuscular HGB Conc 33 g/dL 31-36 Red Cell Distribution Width 13 % 10.5-15 Platelet Count 351 10^3/uL 150-450 Mean Platelet Volume 7 um3 Low 7.4-10.4 Abs Neutrophils 4.2 10^3/uL 1.5-7.7 Abs Lymphocytes 5.5 10^3/uL High 1.0-4.8 Abs Monocytes 0.8 10^3/uL 0-0.8 Abs Eosinophils 0.1 10^3/uL 0-0.6 Abs Basophils 0.1 10^3/uL 0-0.2 Abs Nucleated RBC 0.01 10^3/uL Granulocyte % 39.4 % 38-83 Lymphocyte % 51.7 % High 25-47 Monocyte % 7.3 % 1-9 Eosinophil % 1.0 % 0-6 Basophil % 0.6 % 0-2 Nucleated Red Blood Cells % 0.1 Comp Metabolic Panel 07/05/2015 Sodium 137 mmol/L 133-145 Potassium 3.4 mmol/L Low 3.5-5.0 Chloride 104 mmol/L 101-111 Co2 Carbon Dioxide 18 mmol/L Low 22-32 Anion Gap 15 mmol/L High 2-11 Glucose 127 mg/dL High 70-100 Blood Urea Nitrogen 9 mg/dL 6-24 Creatinine 0.93 mg/dL 0.51-0.95 BUN/Creatinine Ratio 9.7 8-20 Calcium 8.9 mg/dL 8.6-10.3 Total Protein 7.9 g/dL 6.4-8.9 Albumin 4.6 g/dL 3.2-5.2 Globulin 3.3 g/dL 2-4 Albumin/Globulin Ratio 1.4 1-3 Total Bilirubin 0.40 mg/dL 0.2-1.0 Alkaline Phosphatase 51 U/L 34-104 Alt 20 U/L 7-52 Ast 24 U/L 13-39 Egfr Non- 67.5 >60 Egfr 86.8 >60 34 Laboratory test finding 07/05/2015 Acetaminophen < 15 g/mL 35 Alcohol 227 mg/dL High <10 Salicylate < 2.50 mg/dL <30 TSH (Thyroid Stimulating Horm) 6.62 ?IU/mL High 0.34-5.60 Laboratory test finding 01/01/2015 TSH (Thyroid Stimulating 0.82 ?IU/mL 0.34-5.60 Horm) Laboratory test finding 08/23/2014 TSH (Thyroid Stimulating 0.47 IU/mL 0.34-5.60 Horm) Total T3 1.15 ng/mL 0.87-1.78 Free T4 1.27 ng/mL High 0.61-1.12 Laboratory test 04/10/2014 TSH (Thyroid 10.05 IU/mL High 0.34-5.60 finding Stimulating Horm) Total T3 0.89 ng/mL 0.87-1.78 Free T4 1.07 ng/mL 0.61-1.12 Urine DIP 04/10/2014 Specific [place] 1.015 1.01-1.02 Urine pH 5 5-6 Leukocytes NEG Neg Urine Nitrites NEG Neg Total Protein, Urine NEG Neg Urine Glucose NORM Norm Urine Ketones NEG Neg Urobilinogen NORM Norm Urine Bilirubin NEG Neg Urine Blood NEG Neg GC/Chlamydia Amplified Rna 10/31/2013 GC/Chlamydia Rna (SEE NOTE) 36 Laboratory test finding 10/24/2013 Strep Screen NEG Neg Varicella Zoster Igg AB 09/09/2013 Varicella-Zoster IgG Positive 37 Antibody Varicella IgG Antibody Index 4.0 38 Rubella Igg Titer 09/09/2013 Rubella IgG Antibody Positive 39 Rubella IgG Antibody Index 1.6 40 Rubeola Measles Igg AB 09/09/2013 Rubeola (Measles) IgG Antibody Positive 41 Rubeola IgG Antibody Index 1.4 42 Mumps Igg 09/09/2013 Mumps Virus IgG Antibody Positive 43 Mumps IgG Antibody Index 1.2 44 Laboratory test finding 04/06/2013 TSH (Thyroid 0.51 miu/mL 0.34-5.60 Stimulating Horm) Vitamin D, 25 Hydroxy 01/31/2013 25-Hydroxy Vitamin D2 <4.0 ng/mL 25-Hydroxy Vitamin D3 41 ng/mL 25-Hydroxy Vitamin D Total 41 ng/mL 45 CBC Auto Diff 01/31/2013 White Blood Count 7.7 10^3/uL 4.8-10.8 Red Blood Count 4.09 10^6/uL 4.0-5.4 Hemoglobin 13.7 g/dL 12.0-16.0 Hematocrit 39 % 35-47 Mean Corpuscular Volume 96 fL 80-97 Mean Corpuscular Hemoglobin 34 pg High 27-31 Mean Corpuscular HGB Conc 35 g/dL 31-36 Red Cell Distribution Width 13 % 10.5-15 Platelet Count 301 10^3/uL 150-450 Mean Platelet Volume 8 um3 7.4-10.4 Abs Neutrophils 3.9 10^3/uL 1.5-7.7 Abs Lymphocytes 3.0 10^3/uL 1.0-4.8 Abs Monocytes 0.4 10^3/uL 0-0.8 Abs Eosinophils 0.3 10^3/uL 0-0.6 Abs Basophils 0 10^3/uL 0-0.2 Abs Nucleated RBC 0 10^3/uL Granulocyte % 50.8 % 38-83 Lymphocyte % 38.8 % 25-47 Monocyte % 5.5 % 1-9 Eosinophil % 4.3 % 0-6 Basophil % 0.6 % 0-2 Nucleated Red Blood Cells % 0 Comp Metabolic Panel 01/31/2013 Sodium 139 mmol/L 133-145 Potassium 3.9 mmol/L 3.5-5.0 Chloride 111 mmol/L 101-111 Co2 Carbon Dioxide 23.0 mmol/L 22-32 Anion Gap 5.0 mmol/L 2-11 Glucose 101 mg/dL High 70-100 Blood Urea Nitrogen 13 mg/dL 6-24 Creatinine 0.90 mg/dL 0.50-1.40 BUN/Creatinine Ratio 14.4 8-20 Calcium 9.2 mg/dL 8.1-9.9 Total Protein 6.4 g/dL 6.2-8.1 Albumin 3.9 g/dL 3.6-5.4 Globulin 2.5 g/dL 2-4 Albumin/Globulin Ratio 1.6 1-3 Total Bilirubin 0.5 mg/dL 0.4-1.5 Alkaline Phosphatase 65 U/L 30-110 Alt 12 U/L Low 14-54 Ast 17 U/L 12-42 Egfr Non- 71.3 >60 Egfr 91.6 >60 46 Laboratory test 01/31/2013 TSH (Thyroid 9.69 miu/mL High 0.34-5.60 finding Stimulating Horm) Vitamin B12 454 pg/mL 180-914 Urine DIP 12/24/2012 Leukocytes ++ Neg Urine Nitrites NEG Neg Urine pH 5-6 5-6 Total Protein, Urine NEG Neg Urine Glucose NORM Norm Urine Ketones NEG Neg Urobilinogen NORM Norm Urine Bilirubin NEG Neg Urine Blood 250+ High Neg Specific [place] 1.020 1.01-1.02 Laboratory test finding 12/24/2012 TSH (Thyroid 1.19 miu/mL 0.34-5.60 Stimulating Horm) Vitamin D, 25 Hydroxy 12/24/2012 25-Hydroxy Vitamin D2 <4.0 ng/mL 25-Hydroxy Vitamin D3 62 ng/mL 25-Hydroxy Vitamin D Total 62 ng/mL 47 Flu Test A, B, Or A & B,Binaxn 08/30/2012 Influenza A Antigen NEG Influenza B Antigen NEG Urine Culture And Sensitivities 07/19/2012 Urine Culture (SEE NOTE) 48 Urine DIP 07/19/2012 Leukocytes 25 High Neg Urine Nitrites NEG Neg Urine pH 5 5-6 Total Protein, Urine NEG Neg Urine Glucose NORM Norm Urine Ketones NEG Neg Urobilinogen NORM Norm Urine Bilirubin NEG Neg Urine Blood 50 High Neg Specific [place] 1.030 High 1.01-1.02 Laboratory test 07/19/2012 TSH (Thyroid 0.22 miu/mL Low 0.34-5.60 finding Stimulating Horm) Vitamin D, 25 Hydroxy 07/19/2012 25-Hydroxy Vitamin D2 <4.0 ng/mL 25-Hydroxy Vitamin D3 26 ng/mL 25-Hydroxy Vitamin D Total 26 ng/mL 49 Laboratory test 06/03/2012 TSH (Thyroid 18.60 miu/mL High 0.34-5.60 finding Stimulating Horm) Total T3 1.12 ng/mL 0.5-1.7 Free T4 1.08 ng/mL 0.61-1.24 Laboratory test finding 05/06/2011 TSH 45.73 MIU/ML High 0.34-5.60 T3 Total 0.73 NG/ML 0.5-1.7 Thyroxine Free 0.81 ng/dL 0.61-1.24 Vitamin D, 25 Hydroxy 02/12/2011 25-Hydroxy Vitamin D2 9.9 ng/mL () 25-Hydroxy Vitamin D3 16 ng/mL () 25-Hydroxy Vitamin D Total 26 ng/mL () 50 Laboratory test 02/12/2011 TSH 139.52 MIU/ML High 0.34-5.60 finding Laboratory test 08/09/2010 CCP Antibodies 6 units 0-19 51 finding Igg/Iga Rheumatoid Arth Factor 7.3 IU/mL 0.0-13.9 Sedimentation Rate 20 MM/HR 0-20 Vitamin D, 25 Oh 15.1 ng/mL Low 32.0-100.0 52 Comprehensive Metabolic 08/09/2010 Glucose 92 mg/dL 70-100 BUN 15 mg/dL 4-18 Creatinine, Serum 1.31 mg/dL High 0.50-1.10 Sodium 142 mmol/L 136-146 Potassium 3.9 mmol/L 3.5-5.3 Chloride 105 mmol/L 98-110 Carbon Dioxide 29 mmol/L 20-32 Albumin 4.6 g/dL 3.5-4.7 Protein, Total 8.0 g/dL 6.4-8.3 Calcium 9.8 mg/dL 8.4-10.4 Alkaline Phosphatase 57 U/L 10-118 Sgot (Ast) 48 U/L High 3-40 SGPT (Alt) 28 U/L 7-50 Bilirubin, Total 0.30 mg/dL 0.30-1.20 Egfr (Calculated) 08/09/2010 Estimated GFR (CALCULATED) Egfr 47 53 Egfr, -[place]man[place] 57 54 CBC 08/09/2010 WBC 7.8 x10E3/uL 4.3-10.9 RBC 4.02 x10E6/uL 3.80-5.30 Hemoglobin 12.6 g/dL 11.8-15.8 Hematocrit 38.2 % 35.0-47.0 MCV 95.0 fl 82.0-98.0 MCH 31.3 pg 27.5-33.5 MCHC 33.0 g/dL 32.0-36.0 RDW 14.1 % 11.5-14.5 Platelet Count 301 x10E3/uL 130-400 MPV 10.0 fl 6.5-10.5 Segmented Neutrophils 42.9 % Low 44.0-74.0 Lymphocytes 47.9 % High 15.0-45.0 Monocytes 6.7 % 2.0-13.0 Eosinophils 1.9 % 0.0-6.0 Basophils 0.6 % 0.0-2.0 Neutrophil Absolute 3.3 x10E3/uL 1.4-7.0 Lymphocytes Absolute 3.7 x10E3/uL High 1.0-3.4 Monocyte Absolute 0.5 x10E3/uL 0.2-1.0 Eosinophil Absolute 0.1 x10E3/uL 0.0-0.5 Basophil Absolute 0.0 x10E3/uL 0.0-0.2 Urine Culture & 11/30/2009 Urine Culture Sensitivi NG 55, 56 Sensitivi Urine DIP 11/30/2009 Leukocytes TRACE Neg Urine Nitrites NEG Neg Urine pH 5 5-6 Total Protein, Urine NEG Neg Urine Glucose NORM Norm Urine Ketones NEG Neg Urobilinogen NORM Norm Urine Bilirubin NEG Neg Urine Blood TRACE Neg Specific [place] N/A Low 1.01-1.02 Laboratory test finding 07/06/2009 Urine Culture No growth. Laboratory test finding 07/06/2009 TSH (Thyrotropin) 16.490 uIU/ml High 0.350-5.500 Urine DIP 07/06/2009 Leukocytes + Neg Urine Nitrites NEG Neg Urine pH 5 5-6 Total Protein, Urine TRACE Neg Urine Glucose NORM Norm Urine Ketones NEG Neg Urobilinogen NORM Norm Urine Bilirubin NEG Neg Urine Blood NEG Neg Specific [place] NA Low 1.01-1.02 Urine Culture Sensitivities 06/08/2009 Ampicillin <=2 Amikacin <=2 Ciprofloxacin <=0.25 Ceftriaxone <=1 Cefazolin <=4 Nitrofurantoin <=16 Gentamicin <=1 Imipenem <=1 Levofloxacin <=0.12 Trimeth-Sulfa <=20 Ceftazidime <=1 Tigecycline <=0.5 Piperacillin/Tazobactam <=4 Laboratory test finding 06/08/2009 TSH 10.04 MIU/ML High 0.34-5.60 Urine DIP 06/08/2009 Leukocytes TRACE Neg Urine Nitrites POS Neg Urine pH 6-7 5-6 Total Protein, Urine NEG Neg Urine Glucose NORM Norm Urine Ketones NEG Neg Urobilinogen NORM Norm Urine Bilirubin NEG Neg Urine Blood NEG Neg Specific [place] N/A Low 1.01-1.02 Laboratory test finding 06/08/2009 Urine Culture ESCHERICHIA COLI 57 Sensitivi Laboratory test finding 04/27/2009 Urine Culture ESCHERICHIA COLI 58 Sensitivi Urine Culture 04/27/2009 Ampicillin <=2 Sensitivities Amikacin <=2 Ciprofloxacin <=0.25 Ceftriaxone <=1 Cefazolin <=4 Nitrofurantoin <=16 Gentamicin <=1 Imipenem <=1 Levofloxacin <=0.12 Trimeth-Sulfa <=20 Ceftazidime <=1 Tigecycline <=0.5 Piperacillin/Tazobactam <=4 Urine DIP 04/27/2009 Leukocytes NEG Neg Urine Nitrites POS Neg Urine pH 5 5-6 Total Protein, Urine NEG Neg Urine Glucose NORM Norm Urine Ketones NEG Neg Urobilinogen NORM Norm Urine Bilirubin NEG Neg Urine Blood 250 High Neg Specific [place] N/A Low 1.01-1.02 Laboratory test finding 06/13/2008 TSH 2.13 MIU/ML 0.34-5.60 Laboratory test finding 06/13/2008 Flu Test A&B, neg Quickvue CBC With Electronic Diff 01/01/2008 White Blood Count 6.0 CUMM 4.8-10.8 Stat Red Cell Count 4.11 CUMM Low 4.2-5.4 Hemoglobin 13.6 g/dL 12.0-16.0 Hematocrit 38 % 35-47 Mean Corpuscular Volume 93 um3 79-97 Mean Corpuscular Hemoglob 33 pg High 27-31 Mean Corpuscular HGB Cone 36 g/dL 32-36 Redcell Distribution WDTH 12 % 10.5-15 Platelet Count 335 CUMM 150-450 Mean Platelet Volume 6.5 um3 Low 7.4-10.4 Gran % 58.2 % 38-83 Lymph % 34.9 % 20-45 Mononuclear % 5.7 % 1-9 Eosinophil % 0.5 % 0-6 Basophil % 0.7 % 0-2 Abs Lymphs 2.1 1.0-4.8 Abs Mononuclear 0.3 0-0.8 Absolute Neutrophil Count 3.5 1.5-7.7 Abs Eosinophils 0 0-0.6 Abs Basophils 0 0-0.2 CMP Stat 01/01/2008 Sodium 137 mmol/L 135-145 Potassium 2.9 mmol/L Low 3.5-5.0 Chloride 108 mmol/L 101-111 Co2 (Carbon Dioxide) 20.0 mmol/L Low 22-32 Anion Gap 9.0 mmol/L 2-11 59 Glucose 102 mg/dL High 70-100 60 BUN 7 mg/dL 6-24 Creatinine 0.8 mg/dL 0.5-1.4 One Over Creatinine 1.25 BUN/Creatinine Ratio 8.8 8-20 Calcium 8.3 mg/dL 8.1-9.9 61 Total Protein 6.9 GM/DL 6.2-8.1 Albumin 3.7 GM/DL 3.6-5.4 Globulin 3.2 GM/DL 2-4 Albumin/Globulin Ratio 1.2 1-3 Bilirubin Total 0.3 mg/dL Low 0.4-1.5 Alkaline Phosphatase 54 U/L 30-110 Alt (SGPT) 17 U/L 14-54 Ast (Sgot) 19 U/L 12-42 Urinalysis W/Microscopic 01/01/2008 Ua Color STRAW Appearance-Urine CLEAR Specific [place]-Ur 1.001 Low 1.010-1.030 Esterase-Urine NEGATIVE Negative Nitrite NEGATIVE Negative [id number] NEGATIVE Negative Protein-Urine NEGATIVE Negative PH-Urine 5.0 5-9 Blood-Urine 1+ Negative Ketones-Urine NEGATIVE Negative Bilirubin-Ur NEGATIVE Negative Glucose-Urine NEGATIVE Negative RBC-Urine 0-2 0-2 Epith Cells-Ur RARE CMP Stat 10/06/2007 Sodium 140 mmol/L 135-145 Potassium 3.5 mmol/L 3.5-5.0 Chloride 111 mmol/L 101-111 Co2 (Carbon Dioxide) 21.0 mmol/L Low 22-32 Anion Gap 8.0 mmol/L 2-11 62 Glucose 136 mg/dL High 70-105 BUN 12 mg/dL 6-24 Creatinine 1.1 mg/dL 0.5-1.4 One Over Creatinine 0.90 BUN/Creatinine Ratio 10.9 8-20 Calcium 9.1 mg/dL 8.1-9.9 63 Total Protein 7.9 GM/DL 6.2-8.1 Albumin 4.0 GM/DL 3.6-5.4 Globulin 3.9 GM/DL 2-4 Albumin/Globulin Ratio 1.0 1-3 Bilirubin Total 0.3 mg/dL Low 0.4-1.5 Alkaline Phosphatase 69 U/L 30-110 Alt (SGPT) 17 U/L 14-54 Ast (Sgot) 24 U/L - Laboratory test finding 10/06/2007 Alcohol Stat 82.8 mg/dL High None Detected 64 Thyroid Panel 10/06/2007 Free Thyroxine 0.63 NG/ML 0.61-1.24 65 Thyroxine 5.5 g/dL 5-12 TSH 30.17 MIU/ML High 0.34-5.60 66 CBC With Electronic Diff Stat 10/06/2007 White Blood Count 9.5 CUMM 4.8- 10.8 Red Cell Count 4.67 CUMM 4.2-5.4 Hemoglobin 14.6 g/dL 12.0-16.0 Hematocrit 43 % 35-47 Mean Corpuscular Volume 93 um3 79-97 Mean Corpuscular Hemoglob 31 pg 27-31 Mean Corpuscular HGB Cone 34 g/dL 32-36 Redcell Distribution WDTH 13 % 10.5-15 Platelet Count 382 CUMM 150-450 Mean Platelet Volume 6.9 um3 Low 7.4-10.4 Gran % 62.7 % 38-83 Lymph % 28.6 % 20-45 Mononuclear % 5.6 % 1-9 Eosinophil % 1.0 % 0-6 Basophil % 2.1 % High 0-2 Abs Lymphs 2.7 1.0-4.8 Abs Mononuclear 0.5 0-0.8 Absolute Neutrophil Count 6.0 1.5-7.7 Abs Eosinophils 0.1 0-0.6 Abs Basophils 0.2 0-0.2 Urinalysis Stat 10/06/2007 Ua Color YELLOW Appearance-Urine CLEAR Specific [place]-Ur 1.003 Low 1.010-1.030 Esterase-Urine TRACE Negative Nitrite NEGATIVE Negative [id number] NEGATIVE Negative Protein-Urine NEGATIVE Negative PH-Urine 5.0 5-9 Blood-Urine NEGATIVE Negative Ketones-Urine NEGATIVE Negative Bilirubin-Ur NEGATIVE Negative Glucose-Urine NEGATIVE Negative DS3 10/06/2007 Amphetamines Urine Screen NONE DETECTED None Detect Barbituates Urine Screen NONE DETECTED None Detect Benzodiazepine Ur Screen NONE DETECTED None Detect Cannabinoid Urine Screen NONE DETECTED None Detect Cocaine Metabolites Urine NONE DETECTED None Detect Opiates Urine Screen NONE DETECTED None Detect PCP Urine Screen NONE DETECTED None Detect 67 HCG Qualitative Stat 10/06/2007 Serum Qual HCG NEGATIVE Negative 68 Urinalysis W/Microscopic 10/06/2007 Ua Color YELLOW Appearance-Urine CLEAR Specific [place]-Ur 1.003 Low 1.010-1.030 Esterase-Urine TRACE Negative Nitrite NEGATIVE Negative [id number] NEGATIVE Negative Protein-Urine NEGATIVE Negative PH-Urine 5.0 5-9 Blood-Urine NEGATIVE Negative Ketones-Urine NEGATIVE Negative Bilirubin-Ur NEGATIVE Negative Glucose-Urine NEGATIVE Negative WBC-Urine 2-5 0-5 RBC-Urine RARE 0-2 Mucus Urine SMALL Epith Cells-Ur MANY Bacteria-Urine FEW Amorphous Sed-U FEW Urine DIP 05/06/2007 Leukocytes NEG Neg Urine Nitrites NEG Neg Urine pH 5 5-6 Total Protein, Urine NEG Neg Urine Glucose NORM Norm Urine Ketones NEG Neg Urobilinogen NORM Norm Urine Bilirubin NEG Neg Urine Blood NEG Neg Specific [place] NORM Low 1.01-1.02 CBC With Manual Diff 05/06/2007 White Blood Count 11.8 CUMM High 4.8-10.8 Absolute Neutrophil Count 10.7 Anisocytosis SLIGHT Hematocrit 43 % 35-47 Hemoglobin 15.3 g/dL 12.0-16.0 Lymphocyte 7 % 5-47 Mean Corpuscular HGB Cone 35 g/dL 32-36 Mean Corpuscular Hemoglob 33 pg High 27-31 Mean Corpuscular Volume 94 um3 79-97 Monocyte 2 % 0-13 Mean Platelet Volume 7.1 um3 Low 7.4-10.4 Platelet Count 432 CUMM 150-450 Polysegmented Neutrophil 91 % High 38-83 Red Cell Count 4.64 CUMM 4.2-5.4 Redcell Distribution WDTH 13 % 10.5-15 Laboratory test finding 05/06/2007 TSH 51.72 MIU/ML High 0.34-5.60 Free Thyroxine 0.30 NG/ML Low 0.61-1.24 69 T3 Total 0.65 NG/ML 0.5-1.7 Comp Metabolic Panel 05/06/2007 One Over Creatinine 0.83 Anion Gap 9.0 mmol/L 2-11 70 Albumin/Globulin Ratio 1.1 1-3 Albumin 4.0 GM/DL 3.6-5.4 Alkaline Phosphatase 64 U/L 30-110 Alt (SGPT) 18 U/L 14-54 Ast (Sgot) 23 U/L 12-42 BUN 20 mg/dL 6-24 Calcium 9.0 mg/dL 8.7-10.2 Chloride 105 mmol/L 101-111 Co2 (Carbon Dioxide) 27.0 mmol/L 22-32 Globulin 3.5 GM/DL 2-4 Glucose 88 mg/dL 70-105 Potassium 4.5 mmol/L 3.5-5.0 Sodium 141 mmol/L 135-145 Bilirubin Total 0.7 mg/dL 0.4-1.5 Total Protein 7.5 GM/DL 6.2-8.1 BUN/Creatinine Ratio 16.7 8-20 Creatinine 1.2 mg/dL 0.5-1.4 Laboratory test finding 05/06/2007 Lipase 31 U/L 22-51 Urine Culture And Sensitivites 03/08/2007 Urine Culture Sensitivi NG 71 Laboratory test finding 03/08/2007 HCG DIP Test NEG Neg Urine DIP 03/08/2007 Leukocytes ++ Neg Urine Nitrites NEG Neg Urine pH 5 5-6 Total Protein, Urine NEG Neg Urine Glucose NORM Norm Urine Ketones NEG Neg Urobilinogen NORM Norm Urine Bilirubin NEG Neg Urine Blood NEG Neg Specific [place] NORM Low 1.01-1.02 GC/Chlamydia Dna Probe 01/13/2007 CHL By Aptima NEGATIVE Negative 72 GC By Aptima NEGATIVE Negative 73 Vaginitis Dna Probe Screen 01/13/2007 Screen Trichomonas Vaginalis NEGATIVE Dna Screen Gardnerella Vaginalis Dna POSITIVE Screen Rayna Species Dna NEGATIVE Laboratory test 01/13/2007 Cytology <SEE 74 finding NOTE> Cytology 01/13/2007 Cytology <SEE 75 NOTE> Laboratory test 12/29/2005 HCG DIP Test neg Neg finding Laboratory test 08/21/2005 TSH 0.73 MIU/ML 0.34-5.60 76 finding Prolactin 6.3 NG/ML 1.0-25.0 76 Laboratory test finding 07/10/2005 TSH 7.07 MIU/ML High 0.34-5.60 Free Thyroxine 0.64 ng/dL 0.58-1.64 Laboratory test finding 10/24/2004 TSH 4.84 MIU/ML 0.34-5.60 Free Thyroxine 0.82 ng/dL 0.58-1.64 Laboratory test finding 03/20/2004 Thyrotropin (TSH) 8.570 uIU/ml High 0.35 - 5.5 Laboratory test finding 08/07/2003 TSH 3.73 MIU/ML 0.34-5.60 1 [id number] 2 Therapeutic target for the treatment of diabetes Mellitus patients is <7% HBA1C, and in selective patients <6.0%.Please refer to [place] [employer] Diabetic care guidelines for further information. 3 [id number] 9 Because ethnic data is not always readily available, this report includes an eGFR for both -Americans and non- Americans. The National Kidney Disease Education Program (NKDEP) does not endorse the use of the MDRD equation for patients that are not between the ages of 18 and 70, are , have extremes of body size, muscle mass, or nutritional status, or are non- or non-. According to the National Kidney Foundation, irrespective of diagnosis, the stage of the disease is based on the level of kidney function: Stage Description GFR(mL/min/1.73 m(2)) 1 Kidney damage with normal or decreased GFR 90 2 Kidney damage with mild decrease in GFR 60-89 3 Moderate decrease in GFR 30-59 4 Severe decrease in GFR 15-29 5 Kidney failure <15 (or dialysis) 10 Therapeutic target for the treatment of diabetes Mellitus patients is <7% HBA1C, and in selective patients <6.0%.Please refer to [place] [employer] Diabetic care guidelines for further information. 11 ADDITIONAL INFORMATION This test was developed and its performance characteristics determined by [facility] in a manner consistent with CLIA requirements. This test has not been cleared or approved by the U.S. Food and Drug Administration. 12 ADDITIONAL INFORMATION This test was developed and its performance characteristics determined by [facility] in a manner consistent with CLIA requirements. This test has not been cleared or approved by the U.S. Food and Drug Administration. 13 ADDITIONAL INFORMATION This test was developed and its performance characteristics determined by [facility] in a manner consistent with CLIA requirements. This test has not been cleared or approved by the U.S. Food and Drug Administration. Test Performed by: [address] [address] 14 [id number] REFERENCE VALUE <20.0 (Negative) Test Performed by: [facility] [address] [place] [address] 17 Test Performed by: [facility] [address] [place] [address] 18 [id number] 21 Because ethnic data is not always readily available, this report includes an eGFR for both -Americans and non- Americans. The National Kidney Disease Education Program (NKDEP) does not endorse the use of the MDRD equation for patients that are not between the ages of 18 and 70, are , have extremes of body size, muscle mass, or nutritional status, or are non- or non-. According to the National Kidney Foundation, irrespective of diagnosis, the stage of the disease is based on the level of kidney function: Stage Description GFR(mL/min/1.73 m(2)) 1 Kidney damage with normal or decreased GFR 90 2 Kidney damage with mild decrease in GFR 60-89 3 Moderate decrease in GFR 30-59 4 Severe decrease in GFR 15-29 5 Kidney failure <15 (or dialysis) 22 Because ethnic data is not always readily available, this report includes an eGFR for both -Americans and non- Americans. The National Kidney Disease Education Program (NKDEP) does not endorse the use of the MDRD equation for patients that are not between the ages of 18 and 70, are , have extremes of body size, muscle mass, or nutritional status, or are non- or non-. According to the National Kidney Foundation, irrespective of diagnosis, the stage of the disease is based on the level of kidney function: Stage Description GFR(mL/min/1.73 m(2)) 1 Kidney damage with normal or decreased GFR 90 2 Kidney damage with mild decrease in GFR 60-89 3 Moderate decrease in GFR 30-59 4 Severe decrease in GFR 15-29 5 Kidney failure <15 (or dialysis) 23 Acute inflammation: >10.00 24 SCS Severe Sepsis and Septic Shock Management Bundle Measure requires all lactic acids initially measuring >2.0 mmol/L be repeated. 25 [id number] 26 SEE RESULT BELOW Name: FLETCHER BARCENAS : [address]: Manpreet Newman MD Acct: [id number] Unit: [id number] AGE: 40 Location: [facility] Re11/08/15 SEX: F Status: REG REF SPEC: [id number] ESTIVEN: 11/08/15-[address]: Manpreet Newman MD REQ: [id number] RECD: 11/08/15-1215 STATUS: COMP _ SOURCE: URINE SPDESC: ORDERED: Urine Culture COMMENTS: [id number] Procedure Result Reported Site Urine Culture Final 11/09/15- 1238 ML No growth of clinically significant organisms * ML - MAIN LAB ([facility]) . END OF REPORT * ML=Testing performed at Main Lab DEPARTMENT OF PATHOLOGY, [address] [place] [address] Tommy Brody M.D. Director [facility] # [id number] 27 [id number] 28 Because ethnic data is not always readily available, this report includes an eGFR for both -Americans and non- Americans. The National Kidney Disease Education Program (NKDEP) does not endorse the use of the MDRD equation for patients that are not between the ages of 18 and 70, are , have extremes of body size, muscle mass, or nutritional status, or are non- or non-. According to the National Kidney Foundation, irrespective of diagnosis, the stage of the disease is based on the level of kidney function: Stage Description GFR(mL/min/1.73 m(2)) 1 Kidney damage with normal or decreased GFR 90 2 Kidney damage with mild decrease in GFR 60-89 3 Moderate decrease in GFR 30-59 4 Severe decrease in GFR 15-29 5 Kidney failure <15 (or dialysis) 29 [id number] 30 Because ethnic data is not always readily available, this report includes an eGFR for both -Americans and non- Americans. The National Kidney Disease Education Program (NKDEP) does not endorse the use of the MDRD equation for patients that are not between the ages of 18 and 70, are , have extremes of body size, muscle mass, or nutritional status, or are non- or non-. According to the National Kidney Foundation, irrespective of diagnosis, the stage of the disease is based on the level of kidney function: Stage Description GFR(mL/min/1.73 m(2)) 1 Kidney damage with normal or decreased GFR 90 2 Kidney damage with mild decrease in GFR 60-89 3 Moderate decrease in GFR 30-59 4 Severe decrease in GFR 15-29 5 Kidney failure <15 (or dialysis) 31 REFERENCE VALUE 16.0 - 45.0 Test Performed by: [place] [address] Radio Maintainer: Marvel Lewis II, M.D., Ph.D. 32 Test Performed by: [place] [address] Radio Maintainer: Marvel Lewis II, M.D., Ph.D. 33 The urine specimen was tested at the listed cutoffs: Drug class test level (ng/mL) Amphetamines 500 Barbituates 200 Benzodiazepine metabolites 200 Cocaine metabolites 150 Cannabinoids 50 Opiates 300 Pcp 25 This is a screening procedure. Positive results are not confirmed. Specimen was received without chain of custody. Results should be used for medical purposes only. 34 Because ethnic data is not always readily available, this report includes an eGFR for both -Americans and non- Americans. The National Kidney Disease Education Program (NKDEP) does not endorse the use of the MDRD equation for patients that are not between the ages of 18 and 70, are , have extremes of body size, muscle mass, or nutritional status, or are non- or non-. According to the National Kidney Foundation, irrespective of diagnosis, the stage of the disease is based on the level of kidney function: Stage Description GFR(mL/min/1.73 m(2)) 1 Kidney damage with normal or decreased GFR 90 2 Kidney damage with mild decrease in GFR 60-89 3 Moderate decrease in GFR 30-59 4 Severe decrease in GFR 15-29 5 Kidney failure <15 (or dialysis) 35 Therapeutic concentration: <50 ug/mL Toxic concentration: >120 ug/mL 36 RUN DATE: 11/04/13 [facility] LAB LIVE PAGE 1 RUN TIME: [address] [place] [address] Specimen Inquiry Name: SWAPNAFLETCHER Red : [address]: [facility] Acct: [id number] Unit: [id number] AGE: 38 Location: [facility] Re10/31/13 SEX: F Status: REG ER SPEC: [id number] ESTIVEN: 10/31/13-[address] [facility] [address]: Mary Mchugh NP REQ: [id number] RECD: 10/31/13-1541 STATUS: AUGUST HANSON DR: [facility] Katalina Hough NP _ SOURCE: URINE SPDESC: ORDERED: KAYLEE/Walker RNA QUERIES: Medent Number [id number] Procedure Result Verified Site Chlamydia Trachomatis RNA Final 11/04/13- 1330 ML NEGATIVE for Chlamydia trachomatis rRNA GC (N. gonorrhoeae) RNA Final 11/04/13- 1330 ML NEGATIVE for Neisseria gonorrhoeae rRNA A negative result does not preclude the presence of a C. trachomatis or N. gonorrhoeae infection because results are dependent on adequate specimen collection, absence of inhibitors, and sufficient rRNA to be detected. Test results may be affected by improper specimen collection, improper storage, technical error, or specimen mixup. Limitations of the Procedure: The Aptima Combo 2 Assay is not intended for the evaluation of suspected sexual abuse or for other medico-legal indications. For those patients for whom a false positive result may have adverse psychosocial impact, the CDC recommends retesting by a method using an alternate technology. Therapeutic failure or success cannot be determined with the Aptima Combo 2 Assay since nucleic acid may persist following appropriate antimicrobial therapy. Results from the Aptima Combo 2 Assay should be interpreted in conjunction with other laboratory and clinical data available to the clinican. CONTINUED ON NEXT PAGE * ML=Testing performed at Main Lab DEPARTMENT OF PATHOLOGY, [facility] [employer] [place], [place] [address] Tommy Brody M.D. Director [facility] # [id number] RUN DATE: 11/04/13 [facility] LAB LIVE PAGE 2 RUN TIME: 1330 [facility] [employer] [place], [place] [address] Specimen Inquiry Patient: FLETCHER BARCENAS [id number] (Continued) Specimen: [id number] Collected: 10/31/13-1299 Received: 10/31/13-1540 (Continued) Procedure Result Verified Site GC (N. gonorrhoeae) RNA Final (continued) 11/04/13- 1628 Performance characteristics for detecting C. trachomatis and N. gonorrhoeae are derived from high prevalence populations. Positive results in low prevalence populations should be interpreted carefully with the understanding that the likelihood of a false positive may be higher than a true positive. END OF REPORT * ML=Testing performed at Main Lab DEPARTMENT OF PATHOLOGY, [address] [place] [address] Tommy Brody M.D. Director [facility] # [id number] 37 Results suggest response to immunization or prior exposure to the virus. -- REFERENCE VALUE -- Vaccinated: Positive (>=1.1 AI) Unvaccinated: Negative (<=0.8 AI) 38 Test Performed by: [place] [address] Radio Maintainer: Primitivo Olson III, M.D. 39 Results suggest response to immunization or prior exposure to the virus. -- REFERENCE VALUE -- Vaccinated: Positive (>=1.0 AI) Unvaccinated: Negative (<=0.7 AI) 40 Test Performed by: [place] [address] Radio Maintainer: Primitivo Olson III, M.D. 41 Results suggest response to immunization or prior exposure to the virus. -- REFERENCE VALUE -- Vaccinated: Positive (>=1.1 AI) Unvaccinated: Negative (<=0.8 AI) 42 Test Performed by: [place] [address] Radio Maintainer: Primitivo Olson III, M.D. 43 Results suggest response to immunization or prior exposure to the virus. -- REFERENCE VALUE -- Vaccinated: Positive (>=1.1 AI) Unvaccinated: Negative (<=0.8 AI) 44 Test Performed by: [place] [address] Radio Maintainer: Primitivo Olson III, M.D. 45 -- REFERENCE VALUE -- 25-HYDROXY D TOTAL (D2+D3) Optimum levels in the healthy population are 20-50, patients with bone disease may benefit from higher levels within this range. Test Performed by: [address] [address] Radio Maintainer: Primitivo Olson III, M.D. 46 Because ethnic data is not always readily available, this report includes an eGFR for both -Americans and non- Americans. The National Kidney Disease Education Program (NKDEP) does not endorse the use of the MDRD equation for patients that are not between the ages of 18 and 70, are , have extremes of body size, muscle mass, or nutritional status, or are non- or non-. According to the National Kidney Foundation, irrespective of diagnosis, the stage of the disease is based on the level of kidney function: Stage Description GFR(mL/min/1.73 m(2)) 1 Kidney damage with normal or decreased GFR 90 2 Kidney damage with mild decrease in GFR 60-89 3 Moderate decrease in GFR 30-59 4 Severe decrease in GFR 15-29 5 Kidney failure <15 (or dialysis) 47 Interpretation: 51-80 (increased risk of hypercalciuria) -- REFERENCE VALUE -- 25-HYDROXY D TOTAL (D2+D3) Optimum levels in the healthy population are 20-50, patients with bone disease may benefit from higher levels within this range. Test Performed by: [address] [address] Radio Maintainer: Primitivo Olson III, M.D. 48 RUN DATE: 07/21/12 [facility] LAB LIVE PAGE 1 RUN TIME: [address] [place] [address] Specimen Inquiry Name: FLETCHER BARCENAS : [address]: Suzette Perry NP Acct: [id number] Unit: [id number] AGE: 37 Location: [facility] Re07/19/12 SEX: F Status: REG REF SPEC: [id number] ESTIVEN: 07/19/12-[address]: Suzette Perry NP REQ: [id number] RECD: 07/19/12 STATUS: COMP _ SOURCE: URINE SPDESC: ORDERED: Urine Culture QUERIES: Medent Number [id number] Procedure Result Verified Site Urine Culture Final 07/21/12- 1214 ML No Growth Day 2 (<1,000 CFU/mL) END OF REPORT * ML=Testing performed at Main Lab DEPARTMENT OF PATHOLOGY, [address] [place] [address] Tommy Brody M.D. Director [facility] Permit #[id number] 49 -- REFERENCE VALUE -- 25-HYDROXY D TOTAL (D2+D3) Optimum levels in the normal population are 25-80 Test Performed by: [facility] [address] [place] [address] Radio Maintainer: Primitivo Olson III, M.D. 50 -- REFERENCE VALUE -- 25-HYDROXY D TOTAL (D2+D3) Optimum levels in the normal population are 25-80 Test Performed by: [facility] Dpt of Lab Med and Pathology [address] [place] [address] Radio Maintainer: Primitivo Olson III, M.D. 51 Negative <20 Weak positive 20 - 39 Moderate positive 40 - 59 Strong positive >59 52 Recent studies consider the lower limit of 32.0 ng/mL to be a threshold for optimal health. Singh LAWSON. J Nutr. 2005 May;135(2):317-22. 53 >59 mL/min/1.73m2 54 >59 mL/min/1.73m2 Note: Persistent reduction for 3 months or more in an eGFR <60 mL/min/1.73m2 defines CKD. Patients with eGFR values >=60 mL/min/1.73m2 may also have CKD if evidence of persistent proteinuria is present. Additional information may be found at www.kidney.org/professionals/kdoqi. 55 SPECIMEN DESCRIPTION: URINE, CLEAN CATCH 56 FINAL: NO GROWTH DAY 2 (<1,000 CFU/mL) 57 >100^>100,000 ORGANISMS/ML (MANY)^CCU 58 >100^>100,000 ORGANISMS/ML (MANY)^CCU 59 Anion gap measurement may be of limited value in the presence of any alkalosis, especially in a combined acid base disorder. . 60 Note change in reference range as of 12/09/07. The change was based on recommendations from the [place] [employer]. 61 Please note change in reference range effective 07 . 62 Anion gap measurement may be of limited value in the presence of any alkalosis, especially in a combined acid base disorder. . 63 Please note change in reference range effective 07 . 64 The detection limit for ETHANOL is 10.0 mg/dl . Values less than 10.0 mg/dl cannot be accurately measured. . 65 PLEASE NOTE NEW REFERENCE RANGES. 66 VERBAL TO CHELITA BY CRISTOPHER at 0224 on 10/06/07 that panic result(s) have been sent to the printer. 67 THE URINE SPECIMEN WAS TESTED AT THE LISTED CUTOFFS: DRUG CLASS TEST LEVEL (NG/ML) AMPHETAMINES 300 BARBITUATES 200 BENZODIAZEPINE METABOLITES 200 COCAINE METABOLITES 300 CANNABINOIDS 25 OPIATES 200 PCP 25 THIS IS A SCREENING PROCEDURE. POSITIVE RESULTS ARE NOT CONFIRMED. SPECIMEN WAS RECEIVED WITHOUT CHAIN OF CUSTODY. RESULTS SHOULD BE USED FOR MEDICAL PURPOSES ONLY. . 68 If is still suspected, please repeat test after 48 to 72 hours. . 69 PLEASE NOTE NEW REFERENCE RANGES. 70 Anion gap measurement may be of limited value in the presence of any alkalosis, especially in a combined acid base disorder. . 71 FINAL: NO GROWTH DAY 2 (<1,000 CFU/mL) 72 . A negative result does not preclude the presence of a C.trachomatis or N.gonorrhoeae infection because results are dependent on adequate specimen collection, absence of inhibitors, and sufficient rRNA to be detected. Test results may be affected by improper specimen collection, improper specimen storage, technical error, or specimen mixup. . 73 . A negative result does not preclude the presence of a C.trachomatis or N.gonorrhoeae infection because results are dependent on adequate specimen collection, absence of inhibitors, and sufficient rRNA to be detected. Test results may be affected by improper specimen collection, improper specimen storage, technical error, or specimen mixup. . 74 ---- RUN DATE: 01/18/07 [facility] NMI LIVE PAGE 1 RUN TIME: 1237 Specimen Inquiry RUN USER: INTERFACE [id number] FLETCHER BARCENAS <REG REF 01/13> ([id number]) Alexis Meza MD -- Specimen: [id number] Spec Date: 01/13/[address]: Alexis Lynn Spec Type: CYTOLOGY Received: 01/14/07-1200 Copies to: SOURCE ECTOCERVICAL/ENDOCERVICAL Thin Prep with Reflex HPV Test PATIENT INFORMATION ACTUAL COLLECTION DATE: 01/13/07 ADEQUACY OF SPECIMEN Satisfactory for evaluation * Transformation zone component identified * DIAGNOSIS Shift in lori suggestive of bacterial vaginosis * EPITHELIAL CELL ABNORMALITIES * Squamous cell * Atypical squamous cells * Of undetermined significance (ASC-US) * NOTE Specimen sent to [facility] [place] for high risk HPV DNA testing on 01/18/07 at 1600 by [facility]. This Pap test was evaluated with the assistance of the ThinPrep Pap Test Imaging System. Due to cytologic findings at the hatchery employee microscope, comprehensive manual rescreening by a Stem Maker was required. The Pap Smear is a screening test designed to aid in the detection of premalign ant and malignant conditions of the uterine cervix. It is not a diagnostic procedure a nd should not be used as the sole means of detecting cervical cancer. Both false- positive and false-negative reports do occur. Depending on your risk status, a Pap smear mackenzie uld be obtained and evaluated every one to three years. Initial evaluation performed by Oralia CHOUDHURY(AS[facility]) 01/18/07 Final Interpretation electronically signed by: TOMMY BRODY MD 01/18/07 12 37 -- DEPARTMENT OF PATHOLOGY, [address] [place] [address] [facility] Permit #[id number] Tommy Brody M.D. Director of Laboratories Marvel Pollard II, M.D . Pathologist -- 75 ---- RUN DATE: 01/26/07 [facility] NMI LIVE PAGE 1 RUN TIME: 945 Specimen Inquiry RUN USER: INTERFACE [id number] FLETCHER BARCENAS <REG REF 01/13> ([id number]) Alexis Meza MD -- Specimen: [id number] SOUT Spec Date: 01/13/[address]: Alexis Lynn Spec Type: CYTOLOGY Received: 01/14/07-1200 Copies to: SOURCE ECTOCERVICAL/ENDOCERVICAL Thin Prep with Reflex HPV Test PATIENT INFORMATION ACTUAL COLLECTION DATE: 01/13/07 ADEQUACY OF SPECIMEN Satisfactory for evaluation * Transformation zone component identified * DIAGNOSIS Shift in lori suggestive of bacterial vaginosis * EPITHELIAL CELL ABNORMALITIES * Squamous cell * Atypical squamous cells * Of undetermined significance (ASC-US) * NOTE Specimen sent to [facility], [place], [place] for high risk HPV DNA testing on 01/18/07 at 1600 by [employer]. ADDENDUM Addendum #1 Entered: 01/26/07 Nathaniel Human Papilloma Virus test results received with preparation and diagnosis completed by [facility], [place], [place]. Results: POSITIVE High Risk (HPV types 16, 18, 31, 33, 35, 39, 45, 51, 52, 56, 58, 59, 68) (Original consultation report to follow). -- DEPARTMENT OF PATHOLOGY, [address] [place] [address] [facility] Permit #[id number] Tommy Brody M.D. Director of Laboratories Marvel Pollard II, M.D . Pathologist -- -- RUN DATE: 01/26/07 [facility] NMI LIVE PAGE 2 RUN TIME: 945 Specimen Inquiry RUN USER: INTERFACE -- SPEC #: [id number] PATIENT: FLETCHER BARCENAS Red #[id number] (Continued) -- ADDENDUM (Continued) Addendum Review Oralia CHOUDHURY([facility]) 01/26/07 -- This Pap test was evaluated with the assistance of the HistoSonicsPreBabelverse Pap Test Imaging System. Due to cytologic findings at the hatchery employee microscope, comprehensive manual rescreening by a Stem Maker was required. The Pap Smear is a screening test designed to aid in the detection of premalign ant and malignant conditions of the uterine cervix. It is not a diagnostic procedure a nd should not be used as the sole means of detecting cervical cancer. Both false- positive and false-negative reports do occur. Depending on your risk status, a Pap smear mackenzie uld be obtained and evaluated every one to three years. Initial evaluation performed by Oralia CHOUDHURY([facility]) 01/18/07 Final Interpretation electronically signed by: TOMMY BRODY MD 01/18/07 12 37 -- -- DEPARTMENT OF PATHOLOGY, [address] [place] [address] [facility] Permit #[id number] Tommy Brody M.D. Director of Laboratories Marvel Pollard II, M.D . Pathologist -- 76 PLEASE FAX RESULTS TO [facility] AT [phone] Procedures Description No Information Encounters Type Date Location Provider CPT E/M Dx Office Visit 01/16/2017 4:30p [place] [address] R21 Office Visit 12/26/2016 11:30a Main Office NEHEMIAS Tong-C 69272 E03.9 E11.65 R11.2 Office Visit 11/14/2016 11:30a Main Office NEHEMIAS Tong-C 07158 E03.9 E11.65 Office Visit 10/20/2016 11:30a Main Office NEHEMIAS Tong-C 90201 R53.82 M62.838 Office Visit 09/11/2016 2:15p Main Office NEHEMIAS Tong-Zahra 32465 M72.2 Office Visit 05/27/2016 3:00p Main Office NEHEMIAS Smith-C 49531 R10.9 M54.5 Office Visit 03/31/2016 9:30a Main Office NEHEMIAS Tong-C 53963 H92.02 E03.9 Office Visit 11/23/2015 10:45a Main Office RAZ Chacon IIIP-C 32928 J20.9 Office Visit 11/08/2015 9:45a [place] [address] R10.30 Office Visit 06/14/2015 10:45a Main Office Shawnti Kasey. Gianluca, CEMENT TRUCK DRIVER-C 36788 J01.90 Office Visit 05/25/2015 10:15a Main Office Shawnti R. Gianluca, CEMENT TRUCK DRIVER-C 44696 S39.012A R25.1 Office Visit 02/20/2015 3:45p Main Office Shawnti R. Gianluca, CEMENT TRUCK DRIVER-C 90999 J30.9 J01.40 Office Visit 01/26/2015 10:45a Main Office Shawnti R. Gianluca, CEMENT TRUCK DRIVER-C 84149 F41.1 F17.210 R25.1 Office Visit 12/04/2014 4:30p Main Office Shawnti R. Gianluca, CEMENT TRUCK DRIVER-C 89705 461.8 Office Visit 11/28/2014 4:30p Main Office Shawnti R. Gianluca, CEMENT TRUCK DRIVER-C 25414 487.8 Office Visit 07/10/2014 11:30a Main Office Shawnti R. Gianluca, CEMENT TRUCK DRIVER-C 85917 366.9 789.01 305.1 Office Visit 05/23/2014 3:30p Main Office Shawnti R. Gianluca, CEMENT TRUCK DRIVER-C 57046 727.42 Office Visit 04/10/2014 4:30p Main Office Dahlia Barnes M.D. 97011 599.0 Office Visit 10/25/2013 3:45p Main Office Shawnti R. Gianluca, CEMENT TRUCK DRIVER-C 62258 465.0 465.9 Office Visit 10/24/2013 11:15a Main Office Shawnti R. Gianluca, CEMENT TRUCK DRIVER-C 59549 465.9 465.0 Office Visit 09/20/2013 2:15p Main Office Shawnti R. Gianluca, CEMENT TRUCK DRIVER-C 72777 842.00 Office Visit 09/05/2013 4:45p Main Office Shawnti R. Gianluca, CEMENT TRUCK DRIVER-C 29497 461.0 Office Visit 08/25/2013 3:15p Main Office Alexis Huntley M.D. 71919 691.8 Office Visit 07/12/2013 2:15p Main Office Katalina Hough, CEMENT TRUCK DRIVER-C 23276 558.9 Office Visit 05/30/2013 9:00a Main Office Katalina Hough, CEMENT TRUCK DRIVER-C 17125 465.9 Office Visit 01/31/2013 4:15p Main Office Katalina Hough, CEMENT TRUCK DRIVER-C 92582 780.79 268.9 Office Visit 12/24/2012 4:45p Main Office Katalina Hough, CEMENT TRUCK DRIVER-C 63807 461.1 599.0 Office Visit 08/30/2012 11:00a Main Office Katalina Hough, CEMENT TRUCK DRIVER-C 78848 461.0 Office Visit 07/19/2012 12:00p Main Office Suzette Perry, CEMENT TRUCK DRIVER-C 80164 780.79 789.9 268.9 599.0 Office Visit 08/09/2010 3:45p Main Office Katalina Hough, CEMENT TRUCK DRIVER-C 31836 733.99 719.47 719.43 724.2 Office Visit 11/30/2009 2:45p Main Office Katalina Hough, CEMENT TRUCK DRIVER-C 01347 599.0 Office Visit 07/06/2009 3:45p Main Office Katalina Hough, CEMENT TRUCK DRIVER-C 82422 599.0 Office Visit 06/08/2009 11:45a Main Office Katalina Hough, CEMENT TRUCK DRIVER-C 12243 599.0 Office Visit 04/27/2009 11:00a Main Office Katalina Hough, CEMENT TRUCK DRIVER-C 54162 244.9 599.0 Office Visit 01/24/2009 3:00p Main Office Alexis Huntley M.D. 45857 244.9 Office Visit 09/14/2008 10:45a Main Office Alexis Huntley M.D. 58470 244.9 Office Visit 06/13/2008 8:30a Main Office Katalina Hough, CEMENT TRUCK DRIVER-C 12787 244.9 465.9 Office Visit 05/06/2007 11:30a Main Office Alexis Huntley M.D. 13184 789.06 244.9 Office Visit 04/14/2007 3:00p Main Office Shania MoranN.P.C. 03723 465.9 Office Visit 03/08/2007 11:45a Main Office NEHEMIAS Tong-C 92553 787.01 599.0 Office Visit 02/23/2007 9:45a Main Office Alexis Huntley M.D. 69314 795.09 305.1 Office Visit 01/13/2007 2:45p Main Office Alexis Huntley M.D. 71065 616.10 Office Visit 12/29/2005 12:15p Main Office Deborah Rodriguez M.D. 02090 466.0 305.1 Office Visit 07/17/2005 11:45a Main Office Alexis Huntley M.D. 51239 305.1 296.80 244.9 Office Visit 07/10/2005 9:15a Main Office Alexis Huntley M.D. 44949 244.9 296.80 305.1 Office Visit 10/18/2004 4:30p Main Office Alexis Huntley M.D. 15975 719.46 Office Visit 04/09/2004 3:00p Main Office Suzette Pearson M.D. 66742 465.9 466.0 Office Visit 03/28/2004 1:30p Main Office Shania MoranN.P.C. 67903 244.9 Office Visit 08/07/2003 3:00p Main Office Ok Moran.N.P.C. 04495 244.9 Office Visit 02/02/2003 10:30a Main Office Kiana Raya F.N.P.C. 51474 V71.5 Plan of Care Future Appointment(s):08/03/2017 11:00 am - Lab and Office Services at Main Sbyvfh2906/22/2017 - Katalina Hough, NEHEMIAS-CJ06.9 Acute upper respiratory infection, unspecifiedComments:Encourage fluids, nasal saline, deep breathing, Tylenol or Motrin PRN,Follow up:Return to clinic for worsening symptoms or new fever.Recommendations:your illness appears to be caused by a virus, there is no cure or antibiotic that helps with this. Your immune system will fight off this infection with time. It is common to feel tired and achy. Medications such as Tylenol and Motrin can help with this. Get plenty of rest and fluids.
[2017-07-18 14:48] VITALS: BP 128/81
--- NOTE | 2017-07-18 19:12 | ED ---
Fidencio Fortune Natalie, scribed for Marvel Fonseca MD on 07/18/17 at 1506 . Skin Complaint - HPI Summary HPI Summary: The pt is a 42 y/o F presenting to the ED c/o possibly four erythematous small bites on right heel/ankle starting on 07/14/17 and gradually worsening. She found a "white hard thing" on her couch that she thinks could be the source. There is not any pain associated with the powell, but touching it makes the area itchy. 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 She does not have hx of MRSA. - History of Current Complaint Chief Complaint: EDAnimalBite Time Seen by Provider: 07/18/17 14:24 Stated Complaint: POSS INSECT BITE ON RT ANKLE Hx Obtained From: Patient Hx Last Menstrual Period: 09/27/13 Onset/Duration: Started Days Ago, Still Present Skin Exposure Onset/Duration: Days Ago Timing: Constant Onset Severity: Mild Current Severity: Mild Pain Intensity: 2 Pain Scale Used: 0-10 Numeric Skin Location: Discrete - right heel Character: Redness Aggravating Symptom(s): Touch Alleviating Symptom(s): Nothing Associated Signs & Symptoms: Tenderness - Additional Pertinent History Primary Care Physician: [id number] - Allergy/Home Medications Allergies/Adverse Reactions: Allergies Allergy/AdvReac Type Severity Reaction Status Date / Time MS Sulfa Drugs [Sulfa Drugs] Allergy Severe Vomiting Verified 11/25/15 17:35 MS Tropatepine [Tropatepine] Allergy Severe See Comment Verified 11/25/15 17:35 ONIONS Allergy Severe Anaphylatic Uncoded 11/25/15 17:35 Shock Home Medications: Home Medications Fexofenadine (NF) [Aziza 180 (NF)] 180 mg PO DAILY 07/18/17 [History Confirmed 07/18/17] Levothyroxine TAB* [Synthroid TAB*] 150 mcg PO DAILY 07/18/17 [History Confirmed 07/18/17] Nortriptyline CAP* [Pamelor CAP*] 50 mg PO DAILY 07/18/17 [History Confirmed ] Primidone TAB(*) [Mysoline TAB(*)] 50 mg PO BEDTIME 07/18/17 [History Confirmed 07/18/17] Propranolol TAB* [Inderal TAB*] 180 mg PO BEDTIME 07/18/17 [History Confirmed ] Sertraline* [Zoloft*] 100 mg PO DAILY 07/18/17 [History Confirmed 07/18/17] cloNIDine TAB* [Catapres 0.1 MG TAB*] 0.1 - 0.3 mg PO BEDTIME 07/18/17 [History Confirmed 07/18/17] clonazePAM TAB(*) [KlonoPIN TAB(*)] 1 mg PO TID PRN 07/18/17 [History Confirmed 07/18/17] PMH/Surg Hx/FS Hx/Imm Hx Previously Healthy: No Endocrine/Hematology History: Reports: Hx Thyroid Disease Denies: Hx Diabetes - Hypoglycemic ONLY WHEN SHE DOES NOT EAT Cardiovascular History: Denies: Hx Hypertension, Hx Pacemaker/ICD Respiratory History: Denies: Hx Asthma, Hx Chronic Obstructive Pulmonary Disease (COPD) GI History: Denies: Hx Ulcer History: Reports: Hx Kidney Infection - HX OF NONE RECENTLY Musculoskeletal History: Reports: Other Musculoskeletal History - "blew my knee out as a teen" Sensory History: Reports: Hx Contacts or Glasses, Hx Glaucoma Denies: Hx Hearing Aid Opthamlomology History: Reports: Hx Contacts or Glasses, Hx Glaucoma Neurological History: Reports: Hx Seizures - febrile, Other Neuro Impairments/ Disorders - hand tremors Psychiatric History: Reports: Hx Anxiety, Hx Eating Disorder - as teen, Hx Depression, Hx Panic Disorder, Hx Post Traumatic Stress Disorder, Hx Inpatient Treatment, Hx Community Mental Health Tx, Hx Bipolar Disorder, Hx Suicide Attempt Denies: Hx of Violent Episodes Against Others, Hx Substance Abuse, Other Psychiatric Issues/Disorders - Cancer History Cancer Type, Location and Year: cervical cancer 2014 Leep proceedure done - Surgical History Surgery Procedure, Year, and Place: 2013 BILATERAL EYE SURGERY FOR GLAUCOMA OFFICE. BILATERAL LENS REPLACEMENT. GANGLION CYST LEFT WRIST. LEAP PROCEDURE Hx Anesthesia Reactions: No Infectious Disease History: No Infectious Disease History: Denies: Hx Hepatitis, Hx Human Immunodeficiency Virus (HIV), History Other Infectious Disease, Traveled Outside the [place] in Last 30 Days - Family History Known Family History: Positive: Other - anxiety - Social History Alcohol Use: Occasionally Substance Use Type: Reports: None Smoking Status (MU): Light Every Day Tobacco Smoker Type: Cigarettes Amount Used/How Often: 5 CIGS/DAY Length of Time of Smoking/Using Tobacco: 26 years Have You Smoked in the Last Year: Yes Review of Systems Negative: Fever Positive: Other - four small erythematous bites on right heel All Other Systems Reviewed And Are Negative: Yes Physical Exam Triage Information Reviewed: Yes Vital Signs On Initial Exam: Initial Vitals Temp Pulse Resp BP Pulse Ox 96.5 F 68 16 145/107 96 07/18/17 13:57 07/18/17 13:57 07/18/17 13:57 07/18/17 13:57 07/18/17 13:57 Vital Signs Reviewed: Yes Appearance: Positive: Well-Appearing, No Pain Distress Skin: Positive: Warm, Skin Color Reflects Adequate Perfusion, Dry, Other - right posterior heel scabbed over area 3mm in diameter with surrounding erythema 2cm in diameter, no streaking Diagnostics - Vital Signs Vital Signs Temp Pulse Resp BP Pulse Ox 07/18/17 13:57 96.5 F 68 16 145/107 96 - Laboratory Lab Statement: Any lab studies that have been ordered have been reviewed, and results considered in the medical decision making process. Course/Dx - Course Course Of Treatment: Medications reviewed. Allergies noted. BP noted and advised to follow up with PCP. - Diagnoses Provider Diagnoses: Elevated BP without diagnosis of hypertension, Cellulitis Discharge - Sign-Out/Discharge Documenting (check all that apply): Discharge - Discharge Plan Condition: Stable Disposition: HOME Discharge Disposition Comment: The pt will be discharged home under stable conditions. Prescriptions: Clindamycin Cap(NF) [Clindamycin Cap 300 mg Cap(NF)] 300 mg PO Q6H #40 cap Patient Education Materials: Cellulitis (ED) Referrals: Katalina Hough CARBIDE TOOL MAKER [Primary Care Provider] - Additional Instructions: FOLLOW UP WITH YOUR DOCTOR. RETURN TO THE EMERGENCY DEPARTMENT FOR ANY WORSENING OF YOUR CONDITION OR QUESTIONS OR CONCERNS. YOUR BLOOD PRESSURE WAS ELEVATED TODAY; FOLLOW UP WITH YOUR PRIMARY CARE DOCTOR WITHIN ONE WEEK. - Billing Disposition and Condition Condition: STABLE Disposition: HOME The documentation as recorded by the Fidencio orosco Natalie accurately reflects the service I personally performed and the decisions made by me, Marvel Fonseca MD.
== END 2017-07-18 14:48 | disposition home or self-care (01) ==
LOC: ED 13:51
DX: L03.115 Cellulitis of right lower limb (principal); R03.0 Elevated blood-pressure reading, without diagnosis of hypertension; F17.210 Nicotine dependence, cigarettes, uncomplicated
CPT/HCPCS: 99282

== ENCOUNTER → 2018-07-30 22:16 | Emergency (ER) | payer OTHER ==
[~2018-07-30 22:16] MED LIST: Tetan/Diph/Pertus SYR(Tdap)* 0.5 ML SYR(BOOSTRIX) use SYR IM ONE
--- NOTE | 2018-07-30 22:55 | ED ---
Laceration/Wound HPI - HPI Summary HPI Summary: 43-year-old female presents with puncture wound to right foot. She states that she stepped on a tack. Tetanus is not up-to-date. No active bleeding. Is able to ambulate. Has a history of psych disorders. Is diabetic. Sugars have been fine. - History of Current Complaint Stated Complaint: RT FOOT PUNCTURE PER PT Time Seen by Provider: 07/30/18 22:48 Hx Last Menstrual Period: 09/27/13 Pain Intensity: 8 - Additional Pertinent History Primary Care Physician: [id number] - Allergy/Home Medications Allergies/Adverse Reactions: Allergies Allergy/AdvReac Type Severity Reaction Status Date / Time MS Sulfa Drugs [Sulfa Drugs] Allergy Severe Vomiting Verified 10/09/17 14:43 MS Tropatepine [Tropatepine] Allergy Severe See Comment Verified 10/09/17 14:43 ONIONS Allergy Severe Anaphylatic Uncoded 10/09/17 14:43 Shock PMH/Surg Hx/FS Hx/Imm Hx Endocrine/Hematology History: Reports: Hx Thyroid Disease Denies: Hx Diabetes - Hypoglycemic ONLY WHEN SHE DOES NOT EAT Cardiovascular History: Denies: Hx Hypertension, Hx Pacemaker/ICD Respiratory History: Denies: Hx Asthma, Hx Chronic Obstructive Pulmonary Disease (COPD) GI History: Denies: Hx Ulcer History: Reports: Hx Kidney Infection - HX OF NONE RECENTLY Musculoskeletal History: Reports: Other Musculoskeletal History - "blew my knee out as a teen" Sensory History: Reports: Hx Contacts or Glasses, Hx Glaucoma Denies: Hx Hearing Aid Opthamlomology History: Reports: Hx Contacts or Glasses, Hx Glaucoma Neurological History: Reports: Hx Seizures - febrile, Other Neuro Impairments/ Disorders - hand tremors Psychiatric History: Reports: Hx Anxiety, Hx Eating Disorder - as teen, Hx Depression, Hx Panic Disorder, Hx Post Traumatic Stress Disorder, Hx Inpatient Treatment, Hx Community Mental Health Tx, Hx Bipolar Disorder, Hx Suicide Attempt Denies: Hx of Violent Episodes Against Others, Hx Substance Abuse, Other Psychiatric Issues/Disorders - Cancer History Cancer Type, Location and Year: cervical cancer 2015 Leep proceedure done - Surgical History Surgery Procedure, Year, and Place: 2013 BILATERAL EYE SURGERY FOR GLAUCOMA OFFICE. BILATERAL LENS REPLACEMENT. GANGLION CYST LEFT WRIST. LEAP PROCEDURE Hx Anesthesia Reactions: No Infectious Disease History: No Infectious Disease History: Denies: Hx Hepatitis, Hx Human Immunodeficiency Virus (HIV), History Other Infectious Disease, Traveled Outside the [place] in Last 30 Days - Family History Known Family History: Positive: Other - anxiety - Social History Alcohol Use: Occasionally Substance Use Type: Reports: None Smoking Status (MU): Light Every Day Tobacco Smoker Type: Cigarettes Amount Used/How Often: 5 CIGS/DAY Length of Time of Smoking/Using Tobacco: 26 years Have You Smoked in the Last Year: Yes Review of Systems Negative: Fever Negative: Chest Pain Negative: Shortness Of Breath Positive: Other - puncture wound right foot All Other Systems Reviewed And Are Negative: Yes Physical Exam Triage Information Reviewed: Yes Vital Signs On Initial Exam: Initial Vitals Temp Pulse Resp BP Pulse Ox 97.6 F 81 18 107/68 94 07/30/18 22:20 07/30/18 22:20 07/30/18 22:20 07/30/18 22:20 07/30/18 22:20 Vital Signs Reviewed: Yes Appearance: Positive: Well-Appearing Skin: Positive: Warm, Dry, Other - puncture wound right foot Head/Face: Positive: Normal Head/Face Inspection Eyes: Positive: Normal, Conjunctiva Clear ENT: Positive: Pharynx normal Respiratory/Lung Sounds: Positive: Clear to Auscultation, Breath Sounds Present Cardiovascular: Positive: Normal, RRR Musculoskeletal: Positive: Normal, Other - good pulses, full ROM foot Neurological: Positive: Normal Psychiatric: Positive: Normal Diagnostics - Vital Signs Vital Signs Temp Pulse Resp BP Pulse Ox 07/30/18 22:20 97.6 F 81 18 107/68 94 - Laboratory Lab Statement: Any lab studies that have been ordered have been reviewed, and results considered in the medical decision making process. Laceration Repair Course/Dx - Course Course Of Treatment: 43-year-old female presents with puncture wound to right foot. She states that she stepped on a tack. Tetanus is not up-to-date. No active bleeding. Is able to ambulate. Has a history of psych disorders. Is diabetic. Sugars have been fine. On exam has puncture wound to right foot. Cleaned area. gave tetanus. Told keep the Clean and placing Neosporin. Patient understands and agrees with plan. - Differential Dx Differental Diagnoses: Abrasion, Avulsion, Puncture Wound - Clinical Impression Provider Diagnoses: Puncture wound of right foot Discharge - Sign-Out/Discharge Documenting (check all that apply): Patient Departure Patient Received Moderate/Deep Sedation with Procedure: No - Discharge Plan Condition: Good Disposition: HOME Patient Education Materials: Puncture Wound (ED) Referrals: Katalina Hough GRAPHICS INTERN [Primary Care Provider] - Additional Instructions: keep clean with soap and water can apply neosporin Return to ED if develop any new or worsening symptoms - Billing Disposition and Condition Condition: GOOD Disposition: Home
[2018-07-30 23:30] VITALS: BP 121/81
== END | disposition home or self-care (01) ==
LOC: ED 22:16
DX: S91.331A Puncture wound without foreign body, right foot, initial encounter (principal); W22.8XXA Striking against or struck by other objects, initial encounter; Y92.9 Unspecified place or not applicable; F17.210 Nicotine dependence, cigarettes, uncomplicated; Z88.2 Allergy status to sulfonamides
CPT/HCPCS: 90715; 96372; 99281

== ENCOUNTER → 2019-05-05 01:01 | Emergency (ER) | payer OTHER ==
--- OUTSIDE RECORDS SUMMARY | 2019-05-05 05:05 | XMS REPORT ---
:1975 Author Organization [facility] Care Team Providers Name Role Phone Benjamín Snyder Primary Care Physician Unavailable Allergies, Adverse Reactions, Alerts Allergy Code CodeSystem Reaction Severity Criticality Status Start Substance Date Moderate Medications Medication Medication Medication Start Stop Route Dose Status Fill Code CodeSystem Date Date Instructions mirtazapine 581624 RxNorm oral 7.5 mg active for 30 tablet day(s) Wellbutrin SR 059059 RxNorm 2018- oral 100 mg 1 active 1 tablet 08-13- tablet every morning sustaine for 30 d-releas day(s) e 12 hr every morning clonazepam 19740528 RxNorm 2019- oral 1 mg completed for 30 08-13-26 tablet day(s) clonazepam 19740528 RxNorm 2018- oral 1 mg 1 active 1 tablet 10-15-28 tablet three times a three day for 30 times a day(s) day duloxetine 947595 RxNorm oral 30 mg active for 30 1-18 capsule, day(s) delayed release( DR/EC) primidone 866642 RxNorm 2017- oral 50 mg active for 30 2-05 tablet day(s) prazosin 957254 RxNorm oral 2 mg active for 30 capsule day(s) clonazepam 19740528 RxNorm 2019- oral 1 mg completed for 30 2-21 04-26 tablet day(s) trazodone 939029 RxNorm 2018 oral 100 mg active for 30 2-05 tablet day(s) Problems Problem Name Code CodeSystem Alternate Alternate Start End Status Narrative Code CodeSystem Date Date 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 Relevant diagnostic tests/laboratory data Narrative No Information Procedures Procedure Code CodeSystem Target Date of Status Service Device Device Device Name Site Procedure Delivery Code Name UID Location Psychotherap [id number] SNOMED-CT () 2019-02-17 complete Mental y, 45 04 d Health- minutes with [place] patient [address], [id number] [phone] Psychotherap [id number] SNOMED-CT () 2018-11-25 complete Mental y, 45 04 d Health- minutes with [place] patient [address], [id number] [phone] Psychotherap [id number] SNOMED-CT () 2018-12-06 complete Mental y, 45 04 d Health- minutes with [place] patient [address], [id number] [phone] Psychotherap [id number] SNOMED-CT () 2018-09-01 complete Mental y, 45 04 d Health- minutes with [place] patient [address], [id number] [phone] Psychotherap [id number] SNOMED-CT () 2018-11-12 complete Mental y, 45 04 d Health- minutes with [place] patient [address], [id number] [phone] Psychotherap [id number] SNOMED-CT () 2018-09-20 complete Mental y, 45 04 d Health- minutes with [place] patient [address], [id number] [phone] Psychotherap [id number] SNOMED-CT () 2018-08-13 complete Mental y, 45 04 d Health- minutes with [place] patient [address], [id number] [phone] Office [place] [id number] SNOMED-CT () 2018-08-13 complete Mental other 7 d Health- outpatient [place] visit for [address], established [id number] patient, [phone] which requires at least 2 of these 3 ruano components: An expanded problem focused history; An expanded problem focused examination; Medical decision making of [facility] Office or [id number] SNOMED-CT () 2018-11-10 complete Mental other 6 d Health- outpatient [place] visit for [address], established [phone] patient, [phone] which requires at least 2 of these 3 ruano components: A problem focused history; A problem focused examination; [facility] medical [facility]. Counselin SNOMED-CT () 2018-09-08 complete Mental d [address], [id number] [phone] SNOMED-CT () 2018-10-28 complete Mental d [address], [id number] [phone] SNOMED-CT () 2018-11-05 complete Mental d [address], [id number] [phone] SNOMED-CT () 2018-12-16 complete Mental d [address], [id number] [phone] Encounters/Encounter Diagnoses Encounter Name Encounter Diagnosis Diagnosis Diagnosis Date of Service Code Code Name CodeSystem Diagnosis Delivery Location [facility] - [id number] [phone] Emotionally SNOMED-CT 2019-03-02 Behavioral Individual 30 unstable Health min personality Clinic , , disorder , Vital Signs No Information Social History Element Description Description Start End Code CodeSystem AdditionalInfo Date Date SexAssignedAtBirth Female 1974-04 F AdministrativeGender 05-16 Hospital Discharge Instructions Reason For Referral Medical Equipment FDA Assessments
--- OUTSIDE RECORDS SUMMARY | 2019-05-05 05:05 | XMS REPORT ---
:1975 Author Organization [facility] Care Team Providers Name Role Phone Benjamín Snyder Primary Care Physician Unavailable Allergies, Adverse Reactions, Alerts Allergy Code CodeSystem Reaction Severity Criticality Status Start Substance Date Moderate Medications Medication Medication Medication Start Stop Route Dose Status Fill Code CodeSystem Date Date Instructions Wellbutrin SR 920514 RxNorm 2018- oral 100 mg 1 active 1 tablet 08-13- tablet every morning sustaine for 30 d-releas day(s) e 12 hr every morning clonazepam 19740528 RxNorm 2018- oral 1 mg completed for 30 2-21 04-26 tablet day(s) clonazepam 19740528 RxNorm 2019- oral 1 mg completed for 30 - 05-26 tablet day(s) duloxetine 880358 RxNorm oral 30 mg active for 30 1-18 capsule, day(s) delayed release( DR/EC) primidone 503691 RxNorm 2017-04 oral 50 mg active for 30 2-05 tablet day(s) trazodone 523637 RxNorm 2017-04 oral 100 mg active for 30 2-05 tablet day(s) clonazepam 19740528 RxNorm 2018- oral 1 mg 1 active 1 tablet 10-15-28 tablet three times a three day for 30 times a day(s) day prazosin 790720 RxNorm oral 2 mg active for 30 capsule day(s) mirtazapine 975463 RxNorm oral 7.5 mg active for 30 tablet day(s) Problems Problem Name Code CodeSystem Alternate Alternate Start End Status Narrative Code CodeSystem Date Date Emotionally 16746364 SNOMED-CT Active 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 Relevant diagnostic tests/laboratory data Narrative No Information Procedures Procedure Code CodeSystem Target Date of Status Service Device Device Device Name Site Procedure Delivery Code Name UID Location Psychotherap [id number] SNOMED-CT () 2019-02-17 complete Mental y, 45 04 d Health- minutes with [place] patient [address], [id number] [phone] Psychotherap [id number] SNOMED-CT () 2019-03-02 complete Mental y, 45 04 d Health- minutes with [place] patient [address], [id number] [phone] Psychotherap [id number] SNOMED-CT () 2018-11-25 complete Mental y, 45 04 d Health- minutes with [place] patient [address], [id number] [phone] Psychotherap [id number] SNOMED-CT () 2018-12-06 complete Mental y, 45 04 d Health- minutes with [place] patient [address], [id number] [phone] Psychotherap [id number] SNOMED-CT () 2018-09-01 complete Mental y, 45 04 d Health- minutes with [place] patient [address], [id number] [phone] Psychotherap [id number] SNOMED-CT () 2018-11-12 complete Mental y, 45 04 d Health- minutes with [place] patient [address], [id number] [phone] Psychotherap [id number] SNOMED-CT () 2018-09-20 complete Mental y, 45 04 d Health- minutes with [place] patient [address], [id number] [phone] Psychotherap [id number] SNOMED-CT () 2018-08-13 complete Mental y, 45 04 d Health- minutes with [place] patient [address], [id number] [phone] Office or [id number] SNOMED-CT () 2018-08-13 complete Mental other 7 d Health- outpatient [place] visit for [address], [place], established [phone] patient, [phone] which requires at least 2 of these 3 ruano components: An expanded problem focused history; An expanded problem focused examination; Medical decision making of [facility] [place] Office or [id number] SNOMED-CT () 2019-03-02 complete Mental other 7 d Health- outpatient [place] visit for [address], [facility], established [phone] patient, [phone] which requires at least 2 of these 3 ruano components: An expanded problem focused history; An expanded problem focused examination; Medical decision making of [place] Office or [id number] SNOMED-CT () 2018-11-10 complete Mental other 6 d Health- outpatient [place] visit for [address], [facility], established [phone] patient, [phone] which requires at least 2 of these 3 ruano components: A problem focused history; A problem focused examination; [facility] medical decision making. Counselin SNOMED-CT () 2018-09-08 complete Mental d [address], [id number] [phone] SNOMED-CT () 2018-10-28 complete Mental d [address], [id number] [phone] SNOMED-CT () 2018-11-05 complete Mental d Health[address], [id number] [phone] SNOMED-CT () 2018-12-16 complete Mental d [address], [phone] [phone] Encounters/Encounter Diagnoses Encounter Encounter Diagnosis Diagnosis Name Diagnosis Date of Service Name Code Code CodeSystem Diagnosis Delivery Location Non-Billable [id number] Emotionally SNOMED-CT 2019-03-14 Behavioral [facility] personality Clinic , , disorder , Vital Signs No Information Social History Element Description Description Start End Code CodeSystem AdditionalInfo Date Date SexAssignedAtBirth Female 1974-04 F AdministrativeGender 05-16 Hospital Discharge Instructions Reason For Referral Medical Equipment FDA Assessments
--- OUTSIDE RECORDS SUMMARY | 2019-05-05 05:05 | XMS REPORT ---
:1975 Author Name Deborah Henderson Address [facility] [address] [id number] Care Team Providers Name Role Phone Deborah Henderson Unavailable Unavailable Kamila Boone Unavailable Unavailable Allergies, Adverse Reactions, Alerts Allergy Code CodeSystem Reaction Severity Status Substance RxNorm Medications Medication Medication Medication Start Route Dose Status Fill Code CodeSystem Date Instructions RxNorm NoCurrentDosage No NoCurrentFrequency Longer Active clonazepam RxNorm 2019-0 oral 1 mg tablet No for 30 2-21 Longer day(s) Active Wellbutrin RxNorm oral 100 mg 1 tablet Active 1 tablet SR 4-26 sustained-release every morning 12 hr every morning for 30 day(s) clonazepam RxNorm 2019-0 oral 1 mg tablet No for 30 4-26 Longer day(s) Active duloxetine RxNorm 2018-0 oral 30 mg Active for 30 1-18 capsule,delayed day(s) release(DR/EC) mirtazapine RxNorm oral 7.5 mg tablet Active for 30 day(s) prazosin RxNorm oral 2 mg capsule Active for 30 day(s) primidone RxNorm 2018- oral 50 mg tablet Active for 30 2-05 day(s) trazodone RxNorm 2018- oral 100 mg tablet Active for 30 2-05 day(s) clonazepam RxNorm 2018-0 oral 1 mg 1 tablet Active 1 tablet 6-28 three times a day three times a day for 30 day(s) Hospital Discharge Medications Medication Direction Start Date Status Indications Fill Instuctions No Discharge Medication Problems Problem Name Code CodeSystem Start Date End Date Status SNOMED-CT 2018-07-09 Active Laboratory Values/Results Test Test Code Code System Actual Result Date LOINC Procedures Procedure Name Code CodeSystem Target Site Date of Procedure SNOMED-CT () 2018-08-13 SNOMED-CT () 2018-08-13 SNOMED-CT () 2018-09-01 SNOMED-CT () 2018-09-08 SNOMED-CT () 2018-09-20 SNOMED-CT () 2018-10-28 SNOMED-CT () 2018-11-05 SNOMED-CT () 2018-11-12 SNOMED-CT () 2018-11-10 SNOMED-CT () 2018-11-25 SNOMED-CT () 2018-12-06 SNOMED-CT () 2018-12-16 Encounter Diagnosis Code CodeSystem Description Date Finding Finding Status Code 34160 [facility] Psychotherapy - 2018--2 - Active Individual 30 min 9 SNOMED-CT Vital Signs Vitals Date Value Immunizations Vaccine Name Vaccine Code CodeSystem Date Status Social History Element Description Start Date End Date Code CodeSystem Description SNOMED-CT Hospital Discharge Instructions Reason For Referral
--- OUTSIDE RECORDS SUMMARY | 2019-05-05 05:05 | XMS REPORT ---
:1975 Author Organization [facility] Care Team Providers Name Role Phone Benjamín Snyder Primary Care Physician Unavailable Allergies, Adverse Reactions, Alerts Allergy Code CodeSystem Reaction Severity Criticality Status Start Substance Date Moderate Medications Medication Medication Medication Start Stop Route Dose Status Fill Code CodeSystem Date Date Instructions prazosin 072948 RxNorm oral 2 mg active for 30 capsule day(s) Wellbutrin SR 713107 RxNorm 2019- oral 100 mg 1 active 1 tablet 08-13 07-25 tablet every morning sustaine for 30 d-releas day(s) e 12 hr every morning clonazepam 19740528 RxNorm 2019- oral 1 mg completed for 30 - 05-26 tablet day(s) mirtazapine 213242 RxNorm oral 7.5 mg active for 30 tablet day(s) clonazepam 19740528 RxNorm 2019- oral 1 mg completed for 30 2-21 04-26 tablet day(s) primidone 119825 RxNorm 2017-04 oral 50 mg active for 30 2-05 tablet day(s) clonazepam 19740528 RxNorm 2019- oral 1 mg 1 active 1 tablet 10-15 07-28 tablet three times a three day for 30 times a day(s) day duloxetine 661587 RxNorm oral 30 mg active for 30 1-18 capsule, day(s) delayed release( DR/EC) trazodone 372913 RxNorm 2018- oral 100 mg active for 30 2-05 tablet day(s) Problems Problem Name Code CodeSystem Alternate Alternate Start End Status Narrative Code CodeSystem Date Date 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 Relevant diagnostic tests/laboratory data Narrative No Information Procedures Procedure Code CodeSystem Target Date of Status Service Device Device Device Name Site Procedure Delivery Code Name UID Location Psychotherap [id number] SNOMED-CT () 2019-03-31 complete Mental y, 45 04 d Health- minutes with [facility] patient [address], [id number] [id number] Psychotherap [id number] SNOMED-CT () 2018-11-25 complete Mental y, 45 04 d Health- minutes with [facility] patient [address], [id number] [id number] Psychotherap [id number] SNOMED-CT () 2018-12-06 complete Mental y, 45 04 d Health- minutes with [facility] patient [address], [id number] [id number] Psychotherap [id number] SNOMED-CT () 2019-02-17 complete Mental y, 45 04 d Health- minutes with [facility] patient [address], [id number] [phone] Psychotherap [id number] SNOMED-CT () 2019-03-02 complete Mental y, 45 04 d Health- minutes with [facility] patient [address], [id number] [phone] Psychotherap [id number] SNOMED-CT () 2018-11-12 complete Mental y, 45 04 d Health- minutes with [facility] patient [address], [id number] [phone] Psychotherap [id number] SNOMED-CT () 2018-09-20 complete Mental y, 45 04 d Health- minutes with [facility] patient [address], [id number] [phone] Psychotherap [id number] SNOMED-CT () 2018-08-13 complete Mental y, 45 04 d Health- minutes with [facility] patient [address], [id number] [phone] Psychotherap [id number] SNOMED-CT () 2018-09-01 complete Mental y, 45 04 d Health- minutes with [facility] patient [address], [id number] [phone] Office or [id number] SNOMED-CT () 2018-08-13 complete Mental other 7 d Health- outpatient [facility] visit for [address], of an [place], established [id number] patient, [phone] which requires at least 2 of these 3 ruano components: An expanded problem focused history; An expanded problem focused examination; Medical decision making of low Office or [id number] SNOMED-CT () 2019-03-02 complete Mental other 7 d Health- outpatient [facility] visit for [address], established [id number] patient, [phone] which requires at least 2 of these 3 ruano components: An expanded problem focused history; An expanded problem focused examination; Medical decision making of low Office or [id number] SNOMED-CT () 2019-04-11 complete Mental other 7 d Health- outpatient [facility] visit for [address], established [id number] patient, [id number] which requires at least 2 of these 3 ruano components: An expanded problem focused history; An expanded problem focused examination; Medical decision making of low Office or [id number] SNOMED-CT () 2018-11-10 complete Mental other 6 d Health- outpatient [facility] visit for [address], established [id number] patient, [phone] which requires at least 2 of these 3 ruano components: A problem focused history; A problem focused examination; Straightforw derek medical decision making. Laura SNOMED-CT () 2018-09-08 complete Mental d [address], [id number] [phone] SNOMED-CT () 2018-10-28 complete Mental d [address], [id number] [phone] SNOMED-CT () 2018-11-05 complete Mental d [address], [id number] [phone] SNOMED-CT () 2018-12-16 complete Mental d [address], [id number] [phone] SNOMED-CT () 2019-03-24 complete Mental d [address], [id number] [phone] Encounters/Encounter Diagnoses Encounter Name Encounter Diagnosis Diagnosis Diagnosis Date of Service Code Code Name CodeSystem Diagnosis Delivery Location [id number] Emotionally SNOMED-CT 2019-04-21 Behavioral Individual 30 unstable Health min [facility] , , disorder , Vital Signs No Information Social History Element Description Description Start End Code CodeSystem AdditionalInfo Date Date SexAssignedAtBirth Female 1974-04 F AdministrativeGender 05-16 Hospital Discharge Instructions Reason For Referral Medical Equipment FDA Assessments
--- OUTSIDE RECORDS SUMMARY | 2019-05-05 05:05 | XMS REPORT | Continuity of Care Document ---
:1975 External Reference #:[id number] Author Name Ashleigh Brady MD Address [address] [place] [address] Care Team Providers Name Role Phone Katalina Hough DAREN Care Team Information Rug Cleaner Hand [phone] Problems Description No Information Available Social History Type Date Description Comments Sex Unknown Cigarette Use Current Cigarette Smoker ETOH Use Rarely consumes alcohol Recreational Drug Use Denies Drug Use Tobacco Use Start: Unknown Patient is a current smoker, smokes every day Smoking Status Reviewed: 04/01/19 Patient is a current smoker, smokes every day Exercise Type/Frequency Exercises regularly Seat Belt/Car Seat Always uses seat belt Allergies, Adverse Reactions, Alerts Active Allergies Reaction Severity Comments Date Sulfa Antibiotics 11/13/2014 Onion 11/13/2014 Topiramate Violence 04/01/2019 Medications Active Medications SIG Qnty Indications Ordering Provider Date Klonopin 1 po tid Unknown 1mg Tablets Levothyroxine Sodium 1 po qd Unknown 200mcg Tablets Vitamin D3 Complete Unknown Multi Vitamin Daily Unknown Trazodone HCL 1 1/2 - 2 tabs Unknown 50mg Tablets every night at bedtime Propranolol HCL ER 2 po qd Unknown 120mg Caps ER 24HR Prazosin HCL 1 by mouth at Unknown 5mg Capsules bedtime Primidone 1 po qhs Unknown 50mg Tablets Metformin HCL ER (Mod) 1 by mouth every Unknown day 1000mg Tablets ER 24HR Januvia 1 by mouth every Unknown 100mg Tablets day Viibryd 1 by mouth every Unknown 10mg Tablets day Immunizations Description No Information Available Vital Signs Date Vital Result Comment 04/01/2019 2:49pm BP Systolic 130 mmHg BP Diastolic 88 mmHg Height 62 inches 5'2" Weight 194.00 lb BMI (Body Mass Index) 35.5 kg/m2 1 Parity 1 01/22/2015 9:57am BP Systolic 124 mmHg BP Diastolic 78 mmHg Height 63 inches 5'3" Weight 163.00 lb BMI (Body Mass Index) 28.9 kg/m2 Last Menstrual Period 9354647 1 Parity 1 Results Description No Information Available Procedures Description No Information Available Medical Devices Description No Information Available Encounters Type Date Location Provider Dx Diagnosis Office Visit 04/01/2019 [facility] Ashleigh Brady MD R87.612 Low grade intrepith 2:30p lesion cyto smr crvx (LGSIL) R87.810 Cervical high risk HPV Dna test positive R10.2 Pelvic and perineal pain Assessments Date Code Description Provider 04/01/2019 R87.612 Low grade squamous intraepithelial lesion on Ashleigh Brady MD cytologic smear of cervix (LGSIL) 04/01/2019 R87.810 Cervical high risk human papillomavirus (HPV) Ashleigh Brady MD Dna test positive 04/01/2019 R10.2 Pelvic and perineal pain Ashleigh Brady MD Plan of Treatment Future Appointment(s):05/02/2019 2:00 pm - Procedure Room at [facility]2019 2:00 pm - Ashleigh Brady MD at [facility]01/22/2015 - Reshma Davis MDN87.0 Mild cervical dysplasiaComments:You are well healed from your LEEP. You may return to normal activities.N76.0 Acute vaginitisNew Medication: Metronidazole 500 mg - take 1 tab by mouth twice a day x7 daysFluconazole 150 mg - take 1 tab by mouth after you finish the antibioticsComments:You were diagnosed with bacterial vaginosis, an overgrowth of normal bacteria in the vagina which can cause increase in foul-smelling discharge. It does not harm you other than to cause unwanted symptoms. Take the Metronidazole (Flagyl) as prescribed for 1 week. Do not take on an empty stomach. Youshould not drink alcohol while taking the medication.When you finish the medication you should take the Diflucan to prevent a yeast infection. Functional Status Description No Information Available Mental Status Description No Information Available Referrals Description No Information Available
== END | disposition left against medical advice (07) ==
LOC: ED 01:01
DX: Z91.81 History of falling (principal); Z53.21 Procedure and treatment not carried out due to patient leaving prior to being seen by health care provider

== ENCOUNTER 2019-05-12 16:27 | Emergency (ER) | payer OTHER ==
--- NOTE | 2019-05-12 16:48 | ED ---
Head Injury - HPI Summary HPI Summary: 44-year-old female presents to the emergency department today status post fall 1 week ago. Patient states one week ago she fell out of a stationary truck and hit her face on the concrete. She reports edema, 7 out of 10 aching pain, ecchymosis to the right orbit and abrasions to the left orbit. She states she was not evaluated after this fall however her pain has become worse since then. She reports increased pain when leaning forward. Patient denies loss of consciousness after the fall. Patient was speaking with her physical therapist and primary care physician today who suggested she come into the emergency department for evaluation. Patient also has associated blurred vision in the right eye which is made worse when leaning forward. Patient otherwise feels well and is neurologically intact and denies other symptoms such as fever, chest pain, abdominal pain, pain with urination, shortness of breath, worse headache of my life, history of polycystic kidney disease. Family history and surgical history noncontributory. - History Of Current Complaint Chief Complaint: EDHeadache Stated Complaint: FELL A WEEK AGO PER EMS Time Seen by Provider: 05/12/19 16:31 Hx Obtained From: Patient Hx Last Menstrual Period: 09/27/13 Mechanism Of Injury: Blunt Trauma Onset/Duration: Started Days Ago Onset of Pain: Immediate Severity Currently: Mild Severity Initially: Severe Pain Intensity: 4 Pain Scale Used: 0-10 Numeric Location of Head Injury: Frontal Character: Aching Aggravating Factor(s): Movement Alleviating Factor(s): Rest Associated Signs And Symptoms: Visual Changes - Allergies/Home Medications Allergies/Adverse Reactions: Allergies Allergy/AdvReac Type Severity Reaction Status Date / Time tropatepine Allergy Severe See Comment Verified 05/12/19 18:53 Sulfa (Sulfonamide Allergy Unknown Vomiting Verified 05/12/19 18:53 Antibiotics) ONIONS Allergy Severe Anaphylatic Uncoded 05/12/19 18:53 Shock Home Medications: Home Medications DULoxetine DR CAP* [Cymbalta CAP*] 30 mg PO DAILY 05/12/19 [History Confirmed ] DULoxetine DR CAP* [Cymbalta CAP*] 60 mg PO DAILY 05/12/19 [History Confirmed ] Levothyroxine TAB* [Synthroid TAB*] 200 mcg PO DAILY 05/12/19 [History Confirmed 05/12/19] Prazosin HCl 2 mg PO BEDTIME 05/12/19 [History Confirmed 05/12/19] Propranolol LA 120 mg CAP [Inderal LA 120 mg CAP] 240 mg PO DAILY 05/12/19 [ History Confirmed 05/12/19] SitaGLIPtin (NF) [Januvia (NF)] 100 mg PO DAILY 05/12/19 [History Confirmed ] Vilazodone (NF) [Viibryd (NF)] 20 mg PO DAILY 05/12/19 [History Confirmed ] clonazePAM TAB(*) [KlonoPIN TAB(*)] 1 mg PO TID PRN MDD 3 mg 05/12/19 [History Confirmed 05/12/19] metFORMIN* [Glucophage 500 MG TAB *] 500 mg PO BID WITH MEALS 05/12/19 [History Confirmed 05/12/19] traZODone TAB* [Desyrel TAB*] 200 mg PO BEDTIME 05/12/19 [History Confirmed ] PMH/Surg Hx/FS Hx/Imm Hx Endocrine/Hematology History: Reports: Hx Thyroid Disease Denies: Hx Diabetes - Hypoglycemic ONLY WHEN SHE DOES NOT EAT Cardiovascular History: Denies: Hx Hypertension, Hx Pacemaker/ICD Respiratory History: Denies: Hx Asthma, Hx Chronic Obstructive Pulmonary Disease (COPD) GI History: Denies: Hx Ulcer History: Reports: Hx Kidney Infection - HX OF NONE RECENTLY Musculoskeletal History: Reports: Other Musculoskeletal History - "blew my knee out as a teen" Sensory History: Reports: Hx Contacts or Glasses, Hx Glaucoma Denies: Hx Hearing Aid Opthamlomology History: Reports: Hx Contacts or Glasses, Hx Glaucoma Neurological History: Reports: Hx Seizures - febrile, Other Neuro Impairments/ Disorders - hand tremors Psychiatric History: Reports: Hx Anxiety, Hx Eating Disorder - as teen, Hx Depression, Hx Panic Disorder, Hx Post Traumatic Stress Disorder, Hx Inpatient Treatment, Hx Community Mental Health Tx, Hx Bipolar Disorder, Hx Suicide Attempt Denies: Hx of Violent Episodes Against Others, Hx Substance Abuse, Other Psychiatric Issues/Disorders - Cancer History Cancer Type, Location and Year: cervical cancer 2015 Leep proceedure done - Surgical History Surgery Procedure, Year, and Place: 2013 BILATERAL EYE SURGERY FOR GLAUCOMA OFFICE. BILATERAL LENS REPLACEMENT. GANGLION CYST LEFT WRIST. LEAP PROCEDURE Hx Anesthesia Reactions: No - Immunization History Date of Tetanus Vaccine: 07/30/18 Infectious Disease History: No Infectious Disease History: Denies: Hx Hepatitis, Hx Human Immunodeficiency Virus (HIV), History Other Infectious Disease, Traveled Outside the [place] in Last 30 Days - Family History Known Family History: Positive: Other - anxiety - Social History Alcohol Use: Occasionally Substance Use Type: Reports: None Smoking Status (MU): Light Every Day Tobacco Smoker Type: Cigarettes Amount Used/How Often: 5 CIGS/DAY Length of Time of Smoking/Using Tobacco: 26 years Have You Smoked in the Last Year: Yes Review of Systems Constitutional: Negative Positive: Blurred Vision. Negative: Photophobia, Diplopia, Drainage, Erythema ENT: Negative Cardiovascular: Negative Respiratory: Negative Gastrointestinal: Negative Genitourinary: Negative Musculoskeletal: Negative Positive: Rash, Bruising Positive: Headache. Negative: Weakness, Paresthesia, Numbness, Syncope, Slurred Speech Psychological: Normal All Other Systems Reviewed And Are Negative: Yes Physical Exam - Summary Physical Exam Summary: Inspection of the right orbit reveals edema and ecchymosis superiorly and inferiorly. Inspection of the left orbit reveals minor abrasions. The left orbit. EOMI, PERRLA. Patient is neurologically intact. Visual acuity 20/20 bilaterally. Triage Information Reviewed: Yes Vital Signs On Initial Exam: Initial Vitals Temp Pulse Resp BP Pulse Ox 97.4 F 69 20 125/96 98 05/12/19 16:32 05/12/19 16:32 05/12/19 16:32 05/12/19 16:32 05/12/19 16:32 Vital Signs Reviewed: Yes Appearance: Positive: Well-Appearing, No Pain Distress, Well-Nourished Skin: Positive: Warm, Skin Color Reflects Adequate Perfusion Eyes: Positive: EOMI, DUY ENT: Positive: Hearing grossly normal Respiratory/Lung Sounds: Positive: Clear to Auscultation, Breath Sounds Present Cardiovascular: Positive: RRR, S1, S2 Abdomen Description: Positive: Nontender, Soft Bowel Sounds: Positive: Present Musculoskeletal: Positive: Strength/ROM Intact Neurological: Positive: Sensory/Motor Intact, Alert, Oriented to Person Place, Time, Normal Gait, Speech Normal Psychiatric: Positive: Normal, Affect/Mood Appropriate AVPU Assessment: Alert Procedures - Sedation Patient Received Moderate/Deep Sedation with Procedure: No Diagnostics - Vital Signs Vital Signs Temp Pulse Resp BP Pulse Ox 05/12/19 16:32 97.4 F 69 20 125/96 98 - Laboratory Lab Statement: Any lab studies that have been ordered have been reviewed, and results considered in the medical decision making process. Head Injury Course/Dx Course Of Treatment: Patient was evaluated in the emergency department today for head injury. PT Examined and her vitals are stable. Patient neurological exam was within normal limits and she had no evidence of ocular damage or impairment. CT of the brain and maxillofacial structures were done which showed no evidence of intracranial bleed or fracture. Patient discharged with likely mild concussion and told to follow up with her primary care provider in 5 days for further evaluation and management. - Diagnoses Differential Diagnosis/HQI/PQRI: Cerebral Contusion, Cervical Sprain, Concussion Without LOC, Contusion, Hematoma, Laceration, Mandible Fracture, Nasal Fracture, Orbital Fracture, Skull Fracture, Zygomatic Fracture Provider Diagnoses: Headache, Head injury, Facial trauma Discharge ED - Sign-Out/Discharge Documenting (check all that apply): Patient Departure - Discharge Plan Condition: Stable Disposition: HOME Patient Education Materials: Head Injury (ED) Referrals: Katalina Hough NP [Primary Care Provider] - 5 Days Additional Instructions: You were seen in the emergency department today due to facial injury and headache after your accident. CT scans were done which showed no evidence of intracranial bleed or facial bone fractures. It is likely you sustained a mild concussion after your fall. You may take ibuprofen 600 mg every 6 hours as needed for pain. Please follow up with your primary care physician in 5 days for further evaluation and management. Please return to the emergency department immediately if you develop any new or worsening symptoms. - Billing Disposition and Condition Condition: STABLE Disposition: Home
[2019-05-12] MEDS ORDERED: Ketorolac *IM* INJ* 60 MG/2 ML VIAL IM ONE (18:15)
[2019-05-12 18:50] VITALS: BP 116/95
== END 2019-05-12 18:49 | disposition home or self-care (01) ==
LOC: ED 16:27
DX: S09.90XA Unspecified injury of head, initial encounter (principal); S09.93XA Unspecified injury of face, initial encounter; W17.89XA Other fall from one level to another, initial encounter; Y92.9 Unspecified place or not applicable; E03.9 Hypothyroidism, unspecified; E11.9 Type 2 diabetes mellitus without complications; F41.9 Anxiety disorder, unspecified; F43.10 Post-traumatic stress disorder, unspecified; F17.210 Nicotine dependence, cigarettes, uncomplicated; Z85.41 Personal history of malignant neoplasm of cervix uteri; Z79.84 Long term (current) use of oral hypoglycemic drugs; Z79.890 Hormone replacement therapy; Z79.899 Other long term (current) drug therapy; Z88.2 Allergy status to sulfonamides; Z88.8 Allergy status to other drugs, medicaments and biological substances
CPT/HCPCS: 70450; 70486; 96372; 99282; J1885

== ENCOUNTER 2019-06-29 01:13 | Emergency (ER) | payer OTHER ==
--- NOTE | 2019-06-29 01:38 | ED ---
Psychiatric Complaint - HPI Summary HPI Summary: Patient is a 44 y/o F presenting to [facility] via EMS for alcohol intoxication and self-mutilation. Patient has a laceration to her left forearm. When asked why she did this, she states, "I was trying to punish myself for hurting my mother" . She states she was trying to explain to her mom how bad she fell on her arm just wouldn't get it. So she cut herself deeply on her arm to prove how bad she fell. Adamantly denies any suicidal ideation. Patient notes alcohol consumption but denies any other substance usage this evening. She is a current smoker. PSHx of ganglion cyst removal from wrist noted. Last tetanus shot was five years ago. Home medications and allergies are reviewed. - History Of Current Complaint Chief Complaint: EDSuicidal Hx Obtained From: Patient Hx Last Menstrual Period: 09/27/13 Onset/Duration: Still Present Timing: Constant Character: Depressed Aggravating Factor(s): Recent Stress Has Suicidal: Reports: Demonstrates Gesture - Allergies/Home Medications Allergies/Adverse Reactions: Allergies Allergy/AdvReac Type Severity Reaction Status Date / Time tropatepine Allergy Severe See Comment Verified 05/12/19 18:53 Sulfa (Sulfonamide Allergy Unknown Vomiting Verified 05/12/19 18:53 Antibiotics) ONIONS Allergy Severe Anaphylatic Uncoded 05/12/19 18:53 Shock Home Medications: Home Medications Fexofenadine (NF) [Aziza 180 (NF)] 180 mg PO DAILY PRN 07/18/17 [History Confirmed 05/12/19] DULoxetine DR CAP* [Cymbalta CAP*] 30 mg PO DAILY 05/12/19 [History Confirmed ] DULoxetine DR CAP* [Cymbalta CAP*] 60 mg PO DAILY 05/12/19 [History Confirmed ] Levothyroxine TAB* [Synthroid 100 MCG TAB*] 200 mcg PO DAILY 05/12/19 [History Confirmed 05/12/19] Prazosin HCl 2 mg PO BEDTIME 05/12/19 [History Confirmed 05/12/19] Propranolol LA 120 mg CAP [Inderal LA 120 mg CAP] 240 mg PO DAILY 05/12/19 [ History Confirmed 05/12/19] SitaGLIPtin (NF) [Januvia (NF)] 100 mg PO DAILY 05/12/19 [History Confirmed ] Vilazodone (NF) [Viibryd (NF)] 20 mg PO DAILY 05/12/19 [History Confirmed ] clonazePAM TAB(*) [Klonopin TAB(*)] 1 mg PO TID PRN MDD 3 mg 05/12/19 [History Confirmed 05/12/19] metFORMIN* [Glucophage 500 MG TAB *] 500 mg PO BID WITH MEALS 05/12/19 [History Confirmed 05/12/19] traZODone TAB* [Desyrel TAB*] 200 mg PO BEDTIME 05/12/19 [History Confirmed ] PMH/Surg Hx/FS Hx/Imm Hx Endocrine/Hematology History: Reports: Hx Thyroid Disease Denies: Hx Diabetes - Hypoglycemic ONLY WHEN SHE DOES NOT EAT Cardiovascular History: Denies: Hx Hypertension, Hx Pacemaker/ICD Respiratory History: Denies: Hx Asthma, Hx Chronic Obstructive Pulmonary Disease (COPD) GI History: Denies: Hx Ulcer History: Reports: Hx Kidney Infection - HX OF NONE RECENTLY Musculoskeletal History: Reports: Other Musculoskeletal History - "blew my knee out as a teen" Sensory History: Reports: Hx Contacts or Glasses, Hx Glaucoma Denies: Hx Hearing Aid Opthamlomology History: Reports: Hx Contacts or Glasses, Hx Glaucoma Neurological History: Reports: Hx Seizures - febrile, Other Neuro Impairments/ Disorders - hand tremors Psychiatric History: Reports: Hx Anxiety, Hx Eating Disorder - as teen, Hx Depression, Hx Panic Disorder, Hx Post Traumatic Stress Disorder, Hx Inpatient Treatment, Hx Community Mental Health Tx, Hx Bipolar Disorder, Hx Suicide Attempt Denies: Hx of Violent Episodes Against Others, Hx Substance Abuse, Other Psychiatric Issues/Disorders - Cancer History Cancer Type, Location and Year: cervical cancer 2015 Leep proceedure done - Surgical History Surgery Procedure, Year, and Place: 2013 BILATERAL EYE SURGERY FOR GLAUCOMA OFFICE. BILATERAL LENS REPLACEMENT. GANGLION CYST LEFT WRIST. LEAP PROCEDURE Hx Anesthesia Reactions: No - Immunization History Date of Tetanus Vaccine: 07/30/18 Infectious Disease History: No Infectious Disease History: Denies: Hx Hepatitis, Hx Human Immunodeficiency Virus (HIV), History Other Infectious Disease, Traveled Outside the [place] in Last 30 Days - Family History Known Family History: Positive: Other - anxiety - Social History Alcohol Use: Occasionally Substance Use Type: Reports: None Smoking Status (MU): Light Every Day Tobacco Smoker Type: Cigarettes Amount Used/How Often: 5 CIGS/DAY Length of Time of Smoking/Using Tobacco: 26 years Have You Smoked in the Last Year: Yes Review of Systems - ROS Summary Review of Systems Summary: Home Medications Medication Instructions Recorded Confirmed Type Fexofenadine (NF) [Aziza 180 180 mg PO DAILY PRN 07/18/17 05/12/19 History (NF)] DULoxetine DR CAP* [Cymbalta CAP*] 30 mg PO DAILY 05/12/19 05/12/[address] CAP* [Cymbalta CAP*] 60 mg PO DAILY 05/12/19 05/12/19 History Levothyroxine TAB* [Synthroid 100 200 mcg PO DAILY 05/12/19 05/12/19 History MCG TAB*] Prazosin HCl 2 mg PO BEDTIME 05/12/19 05/12/19 History Propranolol LA 120 mg CAP [Inderal 240 mg PO DAILY 05/12/19 05/12/19 History LA 120 mg CAP] SitaGLIPtin (NF) [Januvia (NF)] 100 mg PO DAILY 05/12/19 05/12/19 History Vilazodone (NF) [Viibryd (NF)] 20 mg PO DAILY 05/12/19 05/12/19 History clonazePAM TAB(*) [Klonopin TAB(*)] 1 mg PO TID PRN MDD 3 mg 05/12/19 05/12/19 History metFORMIN* [Glucophage 500 MG TAB 500 mg PO BID WITH MEALS 05/12/19 05/12/19 History *] traZODone TAB* [Desyrel TAB*] 200 mg PO BEDTIME 05/12/19 05/12/19 History Positive: Other - alcohol intoxication Positive: Other - left forearm laceration Positive: Other - self harm All Other Systems Reviewed And Are Negative: Yes Physical Exam - Summary Physical Exam Summary: General: Well-developed, Obese female. No acute distress. Obviously intoxicated , slurring words HEENT: Normocephalic, Atraumatic. Eyes: Conjuctiva normal, PERRL. Oropharynx: Clear, mucous membranes moist, (-) exudates. Neck: Soft, FROM, (-) lymphadenopathy, (-) thyromegaly, (-) JVD. Cardiovascular: Normal sinus rhythm, (-) murmur. Lungs: Clear to auscultation bilaterally (-) wheezes, (-) rales, (-) rhonchi. Abdomen: Soft, non-tender, non-distended, (-) organomegaly, normal bowel sounds. Back: (-) CVA tenderness Extremities: No edema. Skin: Warm, dry, (-) rash. 4.2 cm laceration of the left forearm. Neuro: Alert and oriented x3, moves all extremities equally. No ataxia. No gait disturbance. No sensory deficit. Normal strength, normal sensation. Psychiatric: Labile affect, alternating between angry and agitated to sad and tearful. Triage Information Reviewed: Yes Vital Signs On Initial Exam: Initial Vitals Temp Pulse Resp BP Pulse Ox 97.8 F 94 17 120/92 97 06/29/19 01:28 06/29/19 01:28 06/29/19 01:28 06/29/19 01:28 06/29/19 01:28 Vital Signs Reviewed: Yes Procedures - Procedure Summary Procedure Summary: Left forearm laceration that is 4.2 cm in length was repair. Lidocaine 2% was administered. 5 4-0 Ethilon sutures were placed in interrupted pattern, single layer. No complications during procedure, patient tolerated well. - Sedation Patient Received Moderate/Deep Sedation with Procedure: No - Laceration/Wound Repair left forearm laceration Location: upper extremity - left forearm Description: Linear Anesthesia: 2.0%, Lido Length, Depth and Shape: 4.2 cm Closure: Single Layer Suture Type: Nylon - ethilon 4-0 Number of Sutures: 5 Sterile Dressing Applied?: Yes Diagnostics - Vital Signs Vital Signs Temp Pulse Resp BP Pulse Ox 06/29/19 01:28 97.8 F 94 17 120/92 97 - Laboratory Result Diagrams: 06/29/19 02:20 06/29/19 02:20 Lab Statement: Any lab studies that have been ordered have been reviewed, and results considered in the medical decision making process. Re-Evaluation - Re-Evaluation First Eval Re-Evaluation Time: 06:10 Comment: Patient denies SI; laceration was repaired. Patient is stable for discharge to home. Course/Dx - Course Course Of Treatment: 50-year-old female presents by ambulance from home for laceration. Patient is clearly intoxicated upon arrival. Slurring her words, smells of alcohol. Has a laceration of her left forearm. 4 cm in length. This is repaired with 5 interrupted sutures. 2% lidocaine used. Patient tolerated procedure well. Tetanus updated. Area wrapped with antibiotic ointment and sterile bandage. Patient has blood alcohol of 262. After significant length of time resting she is clinically sober and able to be discharged home. Follow up with PCP. Follow up sooner for any worsening symptoms. - Differential Dx/Clinical Impression Provider Diagnosis: Alcohol intoxication, Laceration of left forearm, Self-mutilation Discharge ED - Sign-Out/Discharge Documenting (check all that apply): Patient Departure - discharge - Discharge Plan Condition: Stable Disposition: HOME Patient Education Materials: Care For Your Stitches (ED), Laceration (ED), Alcohol Intoxication (ED) Referrals: Katalina Hough, RECEIVING DOCK CHECKER [Primary Care Provider] - 3 Days Additional Instructions: PLEASE RETURN TO ED FOR ANY NEW OR CONCERNING SYMPTOMS. PLEASE FOLLOW UP WITH YOUR PRIMARY CARE PHYSICIAN WITHIN THREE DAYS. - Billing Disposition and Condition Condition: STABLE Disposition: Home - Attestation Statements Document Initiated by Yousif: Yes Documenting Scribe: NETTIE MARS Provider For Whom Yousif is Documenting (Include Credential): NELIDA KOO MD Scribe Attestation: INETTIE, scribed for NELIDA KOO MD on 07/02/19 at 0024. Scribe Documentation Reviewed: Yes Provider Attestation: The documentation as recorded by the NETTIE orosco accurately reflects the service I personally performed and the decisions made by me, NELIDA KOO MD Status of Scribe Document: Viewed
--- OUTSIDE RECORDS SUMMARY | 2019-06-29 01:41 | XMS REPORT | Continuity of Care Document ---
:1975 External Reference #:[id number] Author Name Ashleigh Brady MD Address [address] [place] [address] Care Team Providers Name Role Phone Katalina Hough PHOTOGRAPHIC PROCESS ATTENDANT Care Team Information Information Broker [phone] Problems Active Problems Provider Date Cervicovaginal cytology: Low grade squamous Ashleigh Brady MD Onset: 2018 intraepithelial lesion Abnormal cervical Papanicolaou smear with Ashleigh Brady MD Onset: 04/14/2019 positive human papillomavirus deoxyribonucleic acid test Dysplasia of cervix Reshma Davis MD Onset: 04/14/2019 Social History Type Date Description Comments Sex Unknown Cigarette Use Current Cigarette Smoker ETOH Use Rarely consumes alcohol Recreational Drug Use Denies Drug Use Tobacco Use Start: Unknown Patient is a current smoker, smokes every day Smoking Status Reviewed: 05/25/19 Patient is a current smoker, smokes every [...] ER (Mod) 1 by mouth every Unknown 1000mg day Tablets ER 24HR Januvia 1 by mouth every Unknown 100mg Tablets day Viibryd 1 by mouth every Unknown 10mg Tablets day Cyclobenzaprine HCL 1 tab as needed Unknown 10mg every 8 hours Tablets prn Ibuprofen take one tab by Unknown 600mg Tablets mouth every 6 hours as needed pain Anecream Unknown 4% Cream Immunizations Description No Information Available Vital Signs Date Vital Result Comment 05/25/2019 1:17pm BP Systolic 120 mmHg BP Diastolic 82 mmHg Height 62 inches 5'2" Weight 194.00 lb BMI (Body Mass Index) 35.5 kg/m2 1 Parity 1 04/01/2019 2:49pm BP Systolic 130 mmHg BP Diastolic 88 mmHg Height 62 inches 5'2" Weight 194.00 lb BMI (Body Mass Index) 35.5 kg/m2 1 Parity 1 Results Description No Information Available Procedures Date Code Description Status 05/25/2019 54554 Colposcopy Of The Cervix Inc Upper/Adjacent Vagina Completed Medical Devices Description No Information Available Encounters Type Date Location Provider Dx Diagnosis Office Visit 04/01/2019 [facility] Ashleigh Brady MD R87.612 Low grade intrepith 2:30p lesion cyto smr crvx (LGSIL) R87.810 Cervical high risk HPV Dna test positive R10.2 Pelvic and perineal pain Assessments Date Code Description Provider 05/25/2019 R87.612 Low grade squamous intraepithelial lesion on Ashleigh Brady MD cytologic smear of cervix (LGSIL) 05/25/2019 R87.810 Cervical high risk human papillomavirus (HPV) Ashleigh Brady MD Dna test positive 04/01/2019 R87.612 Low grade squamous intraepithelial lesion on Ashleigh Brady MD cytologic smear of cervix (LGSIL) 04/01/2019 R87.810 Cervical high risk human papillomavirus (HPV) Ashleigh Brady MD Dna test positive 04/01/2019 R10.2 Pelvic and perineal pain Ashleigh Brady MD Plan of Treatment 01/22/2015 - Reshma Davis MDN87.0 Mild cervical dysplasiaComments:You are well healed from your LEEP. You may return to normal activities.N76.0 Acute vaginitisNew Medication:Metronidazole 500 mg - take 1 tab by [...]
--- OUTSIDE RECORDS SUMMARY | 2019-06-29 01:41 | XMS REPORT ---
:1975 Author Organization [facility] Care Team Providers Name Role Phone Benjamín Snyder Primary Care Physician Unavailable Allergies, Adverse Reactions, Alerts Allergy Code CodeSystem Reaction Severity Criticality Status Start Substance Date Moderate Medications Medication Medication Medication Start Stop Route Dose Status Fill Code CodeSystem Date Date Instructions primidone 193446 RxNorm 2017- oral 50 mg active for 30 2-05 tablet day(s) trazodone 881805 RxNorm 2017-04 oral 100 mg active for 30 2-05 tablet day(s) clonazepam 19740528 RxNorm 2019- oral 1 mg 1 active 1 tablet 10-15 07-28 tablet three times a three day for 30 times a day(s) day mirtazapine 922169 RxNorm oral 7.5 mg active for 30 tablet day(s) Wellbutrin SR 346242 RxNorm 2019- oral 100 mg 1 active 1 tablet 08-13 07-25 tablet every morning sustaine for 30 d-releas day(s) e 12 hr every morning duloxetine 395894 RxNorm oral 30 mg active for 30 1-18 capsule, day(s) delayed release( DR/EC) clonazepam 19740528 RxNorm 2019- oral 1 mg completed for 30 4-26 05-26 tablet day(s) prazosin 776276 RxNorm oral 2 mg active for 30 capsule day(s) clonazepam 969217 RxNorm 2019- oral 1 mg completed for 30 2-21 04-26 tablet day(s) Problems Problem Name Code CodeSystem Alternate Alternate Start End Status Narrative Code CodeSystem Date Date 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 Relevant diagnostic tests/laboratory data Narrative No Information Procedures Procedure Code CodeSystem Target Date of Status Service Device Device Device Name Site Procedure Delivery Code Name UID Location Psychotherap [id number] SNOMED-CT () 2019-03-31 complete Mental y, 47 04 d Health- minutes with [address], [id number] Psychotherap [id number] SNOMED-CT () 2018-11-25 complete Mental y, 45 04 d Health- minutes with [address], [id number] Psychotherap [id number] SNOMED-CT () 2018-12-06 complete Mental y, 45 04 d Health- minutes with [address], [id number] Psychotherap [id number] SNOMED-CT () 2019-02-17 complete Mental y, 45 04 d Health- minutes with [address], [id number] Psychotherap [id number] SNOMED-CT () 2019-03-02 complete Mental y, 45 04 d Health- minutes with [address], [id number] Psychotherap [id number] SNOMED-CT () 2018-11-12 complete Mental y, 45 04 d Health- minutes with [address], [id number] Psychotherap [id number] SNOMED-CT () 2018-09-20 complete Mental y, 45 04 d Health- minutes with [address], [id number] [phone] Psychotherap [id number] SNOMED-CT () 2018-08-13 complete Mental y, 45 04 d Health- minutes with [address], [id number] Psychotherap [id number] SNOMED-CT () 2018-09-01 complete Mental y, 45 04 d Health- minutes with [address], [id number] Psychotherap 662002 SNOMED-CT () 2019-04-21 complete Mental y, 45 04 d Health- minutes with [address], [id number] Office or 600177 SNOMED-CT () 2018-08-13 complete Mental other 7 d Health- outpatient [place] visit for [address], established [id number] patient, [phone] which requires at least 2 of these 3 ruano components: An expanded problem focused history; An expanded problem focused examination; Medical decision making of low Office or [id number] SNOMED-CT () 2019-03-02 complete Mental other 7 d Health- outpatient [place] visit for [address], established [id number] patient, [phone] which requires at least 2 of these 3 ruano components: An expanded problem focused history; An expanded problem focused examination; Medical decision making of low Office or 648543 SNOMED-CT () 2019-04-11 complete Mental other 7 d Health- outpatient [place] visit for [address], established [id number] patient, [phone] which requires at least 2 of these 3 ruano components: An expanded problem focused history; An expanded problem focused examination; Medical decision making of low Office or 396932 SNOMED-CT () 2018-11-10 complete Mental other 6 d Health- outpatient [place] visit for [address], established [id number] patient, [phone] which requires at least 2 of these 3 ruano components: A problem focused history; A problem focused examination; Straightforw derek medical decision making. Laura SNOMED-CT () 2018-09-08 complete Mental d Health- [address], [id number] [id number] SNOMED-CT () 2018-10-28 complete Mental d Health- [address], [id number] SNOMED-CT () 2018-11-05 complete Mental d Health[address], [id number] SNOMED-CT () 2018-12-16 complete Mental d Health[address], [id number] [id number] SNOMED-CT () 2019-03-24 complete Mental [facility] [address] [place], [place], [id number] [id number] Encounters/Encounter Diagnoses Encounter Name Encounter Diagnosis Diagnosis Diagnosis Date of Service Code Code Name CodeSystem Diagnosis Delivery Location Psychotherapy - 07588 [id number] Emotionally SNOMED-CT 2019-04-21 Behavioral Individual 30 unstable [facility] [address] [place], [place], [id number] Vital Signs No Information Social History Element Description Description Start End Code CodeSystem AdditionalInfo Date Date SexAssignedAtBirth Female 1974-04 F AdministrativeGender 05-16 Hospital Discharge Instructions Reason For Referral Medical Equipment FDA Assessments
--- OUTSIDE RECORDS SUMMARY | 2019-06-29 01:41 | XMS REPORT | Continuity of Care Document ---
:1975 External Reference #:[id number] Author Name CARYL Tong Address [address] [place] [address] Care Team Providers Name Role Phone Alejandra Rowell - Emergency Medicine Care Team Information Clothes Marker Unavailable Alexis Crain M.D. - Psychiatry Care Team Information Clothes Marker [phone] Justin Richmond MD - Ophthalmology Care Team Information Clothes Marker [phone] Rubia Castellano MD - Surgery of the Care Team Information Clothes Marker [phone] Elissa Huerta - Neurology Care Team Information Clothes Marker [phone] Problems Description No Active Problems Social History Type Date Description Comments Sex Unknown Tobacco Use Start: Unknown regularly smokes cigarettes 6 ciggs daily ETOH Use Rarely consumes alcohol Recreational Drug Use Denies Drug Use Tobacco Use Start: Unknown Patient is a current smoker, smokes every day Allergies, Adverse Reactions, Alerts Active Allergies Reaction Severity Comments Date Sulfa 03/28/2004 Onion Severe 07/12/2013 Topiramate violent 02/20/2015 Medications Active Medications SIG Qnty Indications Ordering Date Provider Lidocaine apply 1 30gm S16.1xxA Desmondwnti R. 05/22/2019 4% Cream milliliters to Gianluca, TEEN COUNSELOR-C painful area every 4 hours as needed Cyclobenzaprine HCL take 1/2 or 1 30tabs S16.1xxA Desmondwnti R. 05/17/2019 10mg tablet by mouth Storm, TEEN COUNSELOR-C Tablets three times a day for muscle spasm will cause tiredness Ibuprofen take 1 tablet by 60tabs S16.1xxA Desmondwnti R. 05/17/2019 600mg Tablets mouth three times Storm, TEEN COUNSELOR-C a day with food as needed for pain Albuterol Sulfate HFA 2 puffs every 4 8.500gm J20.9 [facility] R. 02/25/2019 hours if needed NEHEMIAS Hough-C 108(90Base) mcg/Act for cough, wheeze Aerosol or shortness of breath Januvia Take One Tablet By 30tabs E11.65 Desmondsophiai R. 05/11/2018 100mg Tablets Mouth Every Day RAZ HoughP-C For Diabetes Duloxetine HCL Take One Capsule 30caps M79.10 [facility] R. 05/07/2018 30mg [facility]aps [facility] Morning For Pain Taking With 60MG Dose To Equal 90MG Metformin HCL Take One Tablet 60tabs E11.65 [facility] R. 02/16/2018 500mg Twice Daily With NEHEMIAS Hough-C Tablets Food. Levothyroxine Sodium Take One Tablet By 90tabs [facility] R. 02/05/2018 Mouth Every Day NEHEMIAS Hough-C 200mcg Tablets Nexplanon inserted left arm [facility] R. 02/02/2018 68mg Implant 11/30/2017 NEHEMIAS Hough-C Ranitidine HCL Take One Tablet By 30tabs K21.9 Sher[facility] R. 08/03/2017 150mg Mouth Every Day If RAZ HoughP-C Tablets Need For Reflux Aerochamber Plus use with inhalers 1units [facility] R. 07/10/2014 Jean-Vu as needed CARYL Hough Misc Vitamin D3 1 by mouth every [facility] R. 07/10/2014 2000Unit day NEHEMIAS Hough-C Capsules Fluticasone Propionate 2 sprays each nare 16gm J06.9 [facility] R. 10/24/2013 daily for rhinitis NEHEMIAS Hough-C 50mcg/Act Suspension Mirtazapine Unknown 15mg Tablets Fexofenadine HCL Unknown 180mg Tablets Duloxetine HCL Take One Capsule 30caps Sheridansophia R. 60mg Caps By Mouth Every Day RAZ HoughP-C DR Part Krill Oil 1 by mouth every Unknown 500mg Capsules day Trazodone HCL take one tablet by Unknown 100mg mouth at bedtime Tablets for insomnia Prazosin HCL Take One Capsule Unknown 1mg Capsules By Mouth AT Bedtime Propranolol HCL ER 2 daily Elissa Herrera 120mg Caps ER 24HR Primidone 1 tablet every day Unknown 50mg Tablets Clonazepam 1 by mouth three 60tabs Shawnti R. 1mg Tablets times daily if RAZ HoughP-C neded for anxiety History Medications Lidocaine apply one patch to 30units S16.1xxA Shawnti R. 05/20/2019 - 5% the neck/shoulder NEHEMIAS Hough-C 05/22/2019 Patches area daily, remove after 12 hours HM Salonpas Pain apply one patch to 40units S16.1xxA Shawnti R. 2019 - Relief painful spot daily, NEHEMIAS Hough-C 05/20/2019 do not leave on more 1.2-5.7-6.3% than 12 hours Patches Prednisone one pill by mouth 5tabs J20.9 Katalina R. 02/25/2019 - 50mg daily for 5 days for NEHEMIAS Hough-C 03/27/2019 Tablets breathing Amoxicillin/Clavu 1 by mouth twice a 20tabs J01.00 Desmondwnti R. 02/25/2019 - lanate Potassium day for 10 days for RAZ HoughP-C 03/27/2019 infection 875-125mg Tablets Medications Administered in Office Medication SIG Qnty Indications Ordering Provider Date TB,Intradermal (PPD, [facility]) [facility] 03/11/2019 Injection TB,Intradermal (PPD, [place]) Katalina Cortés RAZ HoughPAlanC 02/02/2018 Injection TB,Intradermal (PPD, [facility]) [facility] 09/08/2013 Injection Immunizations CPT Code Status Date Vaccine Lot # [id number] Given 02/02/2018 Tdap (Adacel) [id number] Refused 05/17/2019 Influenza Virus Vaccine, Quadrivalent, 3 Yr > Quad , Preserv Free [id number] Refused 09/23/2018 Influenza Virus Vaccine, Quadrivalent, 3 Yr > Quad , Preserv Free [id number] Refused 03/31/2016 Influenza Virus Vaccine, Quadrivalent, 3 Yr > Quad , Preserv Free Vital Signs Date Vital Result Comment 05/17/2019 10:29am Weight 185.00 lb Weight 83.916 kg BP Systolic 128 mmHg BP Diastolic 76 mmHg Heart Rate 80 /min Body Temperature 97.6 F Respiratory Rate 16 /min 02/25/2019 1:42pm Weight 201.00 lb Weight 91.174 kg BP Systolic 122 mmHg BP Diastolic 74 mmHg Heart Rate 88 /min Body Temperature 98.1 F Respiratory Rate 16 /min O2 % BldC Oximetry 96 % Results Test Acquired Date Facility Test Result H/L Range Note CBC Auto 02/03/2019 [facility] White Blood 8.3 10^3/ uL Normal 3.5-10.8 Diff [phone] Count Red Blood Count 4.34 10^6/uL Normal 3.70-4.87 Hemoglobin 15.1 g/dL Normal 12.0-16.0 Hematocrit 45 % Normal 35-47 Mean Corpuscular Volume 105 fL High 80-97 Mean Corpuscular Hemoglobin 35 pg High 27-31 Mean Corpuscular HGB Conc 33 g/dL Normal 31-36 Red Cell Distribution Width 13 % Normal 10-15 Platelet Count 348 10^3/uL Normal 150-450 Mean Platelet Volume 7.8 fL Normal 7.4-10.4 Abs Neutrophils 4.3 10^3/uL Normal 1.5-7.7 Abs Lymphocytes 3.2 10^3/uL Normal 1.0-4.8 Abs Monocytes 0.6 10^3/uL Normal 0-0.8 Abs Eosinophils 0.2 10^3/uL Normal 0-0.6 Abs Basophils 0.1 10^3/uL Normal 0-0.2 Abs Nucleated RBC 0.0 10^3/uL Granulocyte % 51.9 % Lymphocyte % 38.2 % Monocyte % 7.0 % Eosinophil % 2.2 % Basophil % 0.7 % Nucleated Red Blood Cells % 0.1 Comp Metabolic 02/03/2019 [facility] Sodium 136 mmol/ L Normal 135-145 Panel [phone] Potassium 4.4 mmol/L Normal 3.5-5.0 Chloride 102 mmol/L Normal 101-111 Co2 Carbon Dioxide 29 mmol/L Normal 22-32 Anion Gap 5 mmol/L Normal 2-11 Glucose 107 mg/dL High 70-100 Blood Urea Nitrogen 6 mg/dL Normal 6-24 Creatinine 0.84 mg/dL Normal 0.51-0.95 BUN/Creatinine Ratio 7.1 Low 8-20 Calcium 9.8 mg/dL Normal 8.6-10.3 Total Protein 7.5 g/dL Normal 6.4-8.9 Albumin 4.3 g/dL Normal 3.2-5.2 Globulin 3.2 g/dL Normal 2-4 Albumin/Globulin Ratio 1.3 Normal 1-3 Total Bilirubin 0.40 mg/dL Normal 0.2-1.0 Alkaline Phosphatase 89 U/L Normal 34-104 Alt 44 U/L Normal 7-52 Ast 33 U/L Normal 13-39 Egfr Non- 74.7 >60 Egfr 90.4 >60 1 Lipid Profile 02/03/2019 [facility] Triglycerides 246 mg/dL 2 (Trig/Chol/HDL) [phone] Cholesterol 218 mg/dL 3 HDL Cholesterol 38.5 mg/dL 4 LDL Cholesterol 130 mg/dL 5 Laboratory 02/03/2019 [facility] TSH (Thyroid 3.54 Normal 0.34-5.60 6 test finding [phone] Stim Horm) mcIU/mL Hemoglobin A1c (Glyco HGB) 7.5 % High 4.0-5.6 7 Vitamin D Total 25(Oh) 50.8 ng/mL High 20-50 8 1 Because ethnic data is not always readily [...] 15-29 5 Kidney failure <15 (or dialysis) 2 Desirable: <150 Borderline High: 150-199 High: 200-499 Very High: >500 3 Desirable: <200 Borderline High: 200-239 High: >239 4 Low: <40 Desirable: 40-60 High: >60 5 Desirable: <100 Near Optimal: 100-129 Borderline High: 130-159 High: 160-189 Very High: >189 6 [id number] 7 Therapeutic target for the treatment of diabetes mellitus patients is <7% HBA1C, and in selective patients <6.0%. Please refer to [place] [employer] diabetic care guidelines for further information. 8 Total 25-Hydroxyvitamin D2 and D3 (25-OH-VitD) <10 ng/mL (severe deficiency) 10-19 ng/mL (mild to moderate deficiency) 20-50 ng/mL (optimum levels) 51-80 ng/mL (increased risk of hypercalciuria) >80 ng/mL (toxicity possible) Procedures Date Code Description Status 02/25/2019 43013 Nebulizer Treatment Completed Medical Devices Description No Information Available Encounters Type Date Location Provider Dx Diagnosis Office Visit 02/25/2019 Main Office Katalina Hough, J20.9 Acute bronchitis, 2:45p TEEN COUNSELOR-C unspecified J01.00 Acute maxillary sinusitis, unspecified Office Visit 02/03/2019 1:30p Main Office Katalina Hough, Z00.00 Encntr for general TEEN COUNSELOR-C adult medical exam w/o abnormal findings M54.5 Low back pain K02.7 Dental root caries Assessments Date Code Description Provider 05/17/2019 S06.0x0D Concussion without loss of consciousness, Katalina Hough, TEEN COUNSELOR-C subsequent encounter 05/17/2019 S16.1xxA Strain of muscle, fascia and tendon at Katalina Parks. Gianluca , TEEN COUNSELOR-C neck level, initial encounter 03/11/2019 Z11.1 Encounter for screening for respiratory Katalina Hough TEEN COUNSELOR-C tuberculosis 02/25/2019 J20.9 Acute bronchitis, unspecified Katalina Hough, TEEN COUNSELOR-C 02/25/2019 J01.00 Acute maxillary sinusitis, unspecified Katalina R. Gianluca, TEEN COUNSELOR-C 02/03/2019 Z00.00 Encounter for general adult medical Katalina Hough, TEEN COUNSELOR- C examination without abnormal findings 02/03/2019 M54.5 Low back pain Katalina Hough, TEEN COUNSELOR-C 02/03/2019 K02.7 Dental root caries CARYL Tong Plan of Treatment Future Appointment(s):06/17/2019 2:30 pm - CARYL Tong at [facility] [place]/17/2019 - NEHEMIAS Tong-CS06.0x0D Concussion without loss of consciousness, subsequent encounterComments:improving, continue rest, fluids, activity as toleratedFollow up:DM follow up late 16.1xxA Strain of muscle, fascia and tendon at neck level, initial encounterNew Medication: Cyclobenzaprine HCL 10 mg - take 1/2 or 1 tablet by mouth three times a day for muscle spasm will cause tirednessIbuprofen 600 mg - take 1 tablet by mouth three times a day with food as needed for painHM Salonpas Pain Relief 1.2-5.7- 6.3 % - apply one patch to painful spot daily, do not leave on more than 12 hoursNew Therapy:Comments:encourage heat, ROM, can use muscle relaxer as needed , topical lidocaine for additional pain relief.Continue motrin as needed Functional Status Functional Condition Comment Date Status Glasses Active Mental Status Description No Information Available Referrals Description No Information Available
--- OUTSIDE RECORDS SUMMARY | 2019-06-29 01:41 | XMS REPORT | Continuity of Care Document ---
:1975 External Reference #:[id number] Author Name Bakari Car M.D. (transmitted by agent of provider Umm Paredes ) Address [address], [place] [address] Care Team Providers Name Role Phone Katalina Hough NP - Family Care Team Information Radiologic Technology Program Director [phone] Problems Active Problems Provider Date Bilateral carpal tunnel syndrome Bakari Car M.D. Onset: 03/01/2019 Carpal tunnel syndrome of left wrist Elissa Herrera MD Onset: 01/23/2016 Abnormal involuntary movement Elissa Herrera MD Onset: 10/05/2015 Social History Type Date Description Comments Sex Unknown Tobacco Use Start: Unknown Patient is a current cigarette smoker, smokes every day ETOH Use Denies alcohol use Tobacco Use Start: Unknown Patient is a current smoker, smokes every day Recreational Drug Use Denies Drug Use Tobacco Use Start: Unknown Light tobacco smoker (10 or fewer cigarettes/day) Smoking Status Reviewed: 06/13/19 Light tobacco smoker (10 or fewer cigarettes/day) Exercise Type/Frequency Exercises sporadically Allergies, Adverse Reactions, Alerts Active Allergies Reaction Severity Comments Date Sulfa Antibiotics Nausea and Vomiting Severe 06/08/2014 Onion Severe 10/04/2015 Topiramate Violent behavior 10/04/2015 Medications Active Medications SIG Qnty Indications Ordering Provider Date Primidone 2 tablet at 60tabs Bakari Car, 06/13/2019 50mg Tablets bedtime M.D. Propranolol HCL ER 2 by mouth once 60caps R25.1 [place], 2017 daily N.P. 120mg Caps ER 24HR Wrist Brace wear at night 2units G56.02 Elissa Herrera MD 01/23/2016 Ultra-Lite Carpal while sleeping Tunnel/One Size Misc Klonopin 1 mg tid Unknown 1mg Tablets Vitamin D3 1 by mouth every Unknown 2000Unit day [place] Proair HFA 2 puffs by mouth Unknown 108(90Base) every 4 hours as mcg/Act Aerosol needed Flonase Allergy spray 1 spray in Unknown Relief each nostril 50mcg/Act twice daily prn Suspension Fexofenadine HCL 1 po prn Unknown 180mg Tablets Levothyroxine Sodium 1 by mouth every Unknown day 200mcg Tablets Prazosin HCL take one capsule Unknown 2mg by mouth at Capsules bedtime Trazodone HCL take 2 tablet by Unknown 100mg mouth every Tablets night at bedtime Januvia 1 by mouth every Unknown 50mg Tablets day Metformin HCL 1 by mouth twice Unknown 500mg a day Tablets Viibryd 1 tab daily Unknown 20mg Tablets Duloxetine HCL Take One Capsule Unknown 30mg By Mouth Every Caps DR Part Morning For Pain With 60MG Cap Duloxetine HCL Take One Capsule Unknown 60mg By Mouth Every Caps DR Part Day Immunizations Description No Information Available Vital Signs Date Vital Result Comment 06/13/2019 2:45pm Height 63 inches 5'3" Weight 188.00 lb Heart Rate 66 /min BP Systolic 112 mmHg BP Diastolic 80 mmHg BMI (Body Mass Index) 33.3 kg/m2 03/01/2019 11:30am Height 63 inches 5'3" Weight 200.00 lb Heart Rate 80 /min BP Systolic Sitting 140 mmHg BP Diastolic Sitting 84 mmHg Respiratory Rate 18 /min BMI (Body Mass Index) 35.4 kg/m2 Results Description No Information Available Procedures Description No Information Available Medical Devices Description No Information Available Encounters Type Date Location Provider Dx Diagnosis Office Visit 03/01/2019 [facility] Bakari Car, R25.1 Tremor, 11:30a [facility] unspecified G56.03 Carpal tunnel syndrome, bilateral upper limbs Assessments Date Code Description Provider 06/13/2019 R25.1 Tremor, unspecified Bakari Car M.D. 06/13/2019 G56.03 Carpal tunnel syndrome, bilateral upper Bakari Car M.D. limbs 03/01/2019 R25.1 Tremor, unspecified Bakari Car M.D. 03/01/2019 G56.03 Carpal tunnel syndrome, bilateral upper Bakari Car M.D. limbs Plan of Treatment Future Appointment(s):11/10/2019 2:30 pm - Bakari Car M.D. at [facility]06/13/2019 - Bakari Car M.D.R25.1 Tremor, unspecifiedFollow up:Follow up in 4 monthsRecommendations:Stop dilcraxD34.03 Carpal tunnel syndrome, bilateral upper limbsNew Orders:EMG w/Nerve Conduct Study, Upper, Ordered: 06/13/19 Functional Status Description No Information Available Mental Status Description No Information Available Referrals Description No Information Available
[2019-06-29 02:30] LABS: ABS Basophils 0.1 10^3/ul (0-0.2); ABS Eosinophils 0.1 10^3/ul (0-0.6); ABS Lymphocytes 3.3 10^3/ul (1.0-4.8); ABS Monocytes 0.4 10^3/ul (0-0.8); ABS Neutrophils 2.2 10^3/ul (1.5-7.7); Hematocrit 46 % (35-47); Hemoglobin 15.3 g/dL (12.0-16.0); Lymphocyte % 53.7 %; Mean Corpuscular HGB Conc 34 g/dL (31-36); Mean Corpuscular Hemoglobin 33 pg (27-31); Mean Corpuscular Volume 98 fL (80-97); Mean Platelet Volume 7.1 fL (7.4-10.4); Nucleated Red Blood Cells % 0.1; Platelet Count 331 10^3/uL (150-450); Red Blood Count 4.63 10^6 /uL (3.70-4.87); Red Cell Distribution Width 14 % (10-15); White Blood Count 6.1 10^3/uL (3.5-10.8)
[2019-06-29 02:32] LABS: Urine Appearance Clear; Urine Bilirubin Negative (Negative); Urine Blood Negative (Negative); Urine Color Colorless; Urine Glucose Negative (Negative); Urine Ketones Negative (Negative); Urine Nitrite Negative (Negative); Urine Protein Negative (Negative); Urine Specific Gravity 1.002 (1.010-1.030); Urine Urobilinogen Negative (Negative)
[2019-06-29 02:53] LABS: ALT 24 U/L (7-52); AST 23 U/L (13-39); Albumin 4.4 g/dL (3.2-5.2); Albumin/Globulin Ratio 1.4 (1-3); Alkaline Phosphatase 62 U/L (34-104); Anion Gap 9 mmol/L (2-11); BUN/Creatinine Ratio 5.3 (8-20); Blood Urea Nitrogen 5 mg/dL (6-24); CO2 Carbon Dioxide 25 mmol/L (22-32); Calcium 9.6 mg/dL (8.6-10.3); Chloride 106 mmol/L (101-111); EGFR Non-African American 65.3 (>60); Globulin 3.1 g/dL (2-4); Glucose 97 mg/dL (70-100); Potassium 3.6 mmol/L (3.5-5.0); Sodium 140 mmol/L (135-145); Total Protein 7.5 g/dL (6.4-8.9)
[2019-06-29 02:54] LABS: Urine Benzodiazepine Screen None Detected (None Detect); Urine Opiates Screen None Detected (None Detect)
[2019-06-29 02:59] LABS: Acetaminophen < 15 mcg/mL; Alcohol 261 mg/dL (<10); Salicylate < 2.50 mg/dL (<30)
[2019-06-29 03:00] LABS: HCG Pregnancy < 0.60 mIU/mL
[2019-06-29 03:14] LABS: TSH (Thyroid Stimulating Horm) 18.57 mcIU/mL (0.34-5.60)
[2019-06-29] MEDS ORDERED: Mupirocin 2% OINT* TUBE TOPICAL ONE (06:00)
[2019-06-29] MEDS ORDERED: Tetan/Diph/Pertus SYR(Tdap)* 0.5 ML SYR(BOOSTRIX) use SYR contains LATEX IM ONE (06:00)
[2019-06-29 06:56] VITALS: BP 118/78
== END 2019-06-29 06:55 | disposition home or self-care (01) ==
LOC: ED 01:13
DX: F10.129 Alcohol abuse with intoxication, unspecified (principal); Y90.8 Blood alcohol level of 240 mg/100 ml or more; S51.812A Laceration without foreign body of left forearm, initial encounter; X78.9XXA Intentional self-harm by unspecified sharp object, initial encounter; Y92.9 Unspecified place or not applicable; Z23 Encounter for immunization; E07.9 Disorder of thyroid, unspecified; F41.9 Anxiety disorder, unspecified; F32.9 Major depressive disorder, single episode, unspecified; Z79.899 Other long term (current) drug therapy; Z88.2 Allergy status to sulfonamides; Z88.8 Allergy status to other drugs, medicaments and biological substances; Z91.018 Allergy to other foods; F17.210 Nicotine dependence, cigarettes, uncomplicated
CPT/HCPCS: 12002; 36415; 80053; 80307; 80320; 80329; 81003; 84443; 84702; 85025; 90471; 90715; 99285; G0480